=== PATIENT | male | born 1955 | race Caucasian/White ===

== ENCOUNTER 2016-05-17 14:22 | Emergency (ER) | payer MEDICARE ==
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
[2016-05-17] MEDS ORDERED: fentaNYL CITRATE INJ 50 MCG/ML AMP IV ONE ×2 (14:39→14:59)
[2016-05-17 14:54] VITALS: BP 131/73; TEMP 97.3
--- NOTE | 2016-05-17 14:54 | CT ---
EXAM DESCRIPTION: Noncontrast head CT CLINICAL HISTORY: 60 years, Male, altered mental status,severe LAINEZ COMPARISON: None TECHNIQUE: Head CT was performed without IV contrast. This exam was performed according to our departmental dose-optimization program, which includes automated exposure control, adjustment of the mA and/or kV according to patient size and/or use of iterative reconstruction technique. FINDINGS: Study is limited by motion artifact. With this in mind, no acute intracranial hemorrhage is seen. There is no midline shift or other mass effect. The ventricles and basilar cisterns are well maintained. Chronic ischemic changes are noted in the perirenal right matter, but no cortical edema or sulcal effacement is seen to suggest acute cortical infarct. The basal ganglia are unremarkable. There is no posterior fossa lesion. Is mild mucoperiosteal thickening in the left maxillary sinus. No calvarial fracture.. IMPRESSION: Limited exam due to motion artifact with mild chronic ischemic changes, but no acute intracranial abnormality. If symptoms persist or worsen, followup head CT in 24 hr or MRI is recommended. Electronically signed by: Manuel Laws MD 05/17/2016 2:53 PM CDT
[2016-05-17 15:49] VITALS: O2SAT 96
[2016-05-17] MEDS ORDERED: KETOROLAC TROMETHAMINE INJ 30 MG/ML VIAL IV ONE (16:04)
[2016-05-17] MEDS ORDERED: FOLIC ACID INJ 5 MG/ML VIAL IV ONE (16:07)
--- NOTE | 2016-05-17 19:16 | RAD ---
Procedure: XR CHEST 1 VIEW Exam Date: 05/17/2016 Ordering Provider: Jacek Schroeder Clinical Indication: pain Comparison: 07/10/2014 Findings: Cardiac size is magnified by technique. Pulmonary vasculature is normal. Mediastinal contour is normal. Aortic calcification. There is no focal lung consolidation. Left basilar scarring. No pleural effusion. There is no pneumothorax. There is no acute bony or soft tissue abnormality. Impression: 1. No acute abnormalities in the chest. Electronically signed by: Ramu Garcia MD 05/17/2016 7:15 PM CDT
== END 2016-05-17 16:20 | disposition home or self-care (01) ==
LOC: ER 14:22
DX: S00.81XA Abrasion of other part of head, initial encounter (principal); E87.1 Hypo-osmolality and hyponatremia; B19.20 Unspecified viral hepatitis C without hepatic coma; F10.20 Alcohol dependence, uncomplicated; I10 Essential (primary) hypertension; J44.9 Chronic obstructive pulmonary disease, unspecified; Y90.8 Blood alcohol level of 240 mg/100 ml or more; Z87.891 Personal history of nicotine dependence; Z86.73 Personal history of transient ischemic attack (TIA), and cerebral infarction without residual deficits; V00.811A Fall from moving wheelchair (powered), initial encounter; V09.29XA Pedestrian injured in traffic accident involving other motor vehicles, initial encounter; Y92.414 Local residential or business street as the place of occurrence of the external cause
CPT/HCPCS: 70450; 71010; 80048; 80076; 80320; 82550; 82553; 84484; 85025; 85610; 85730; J3010

== ENCOUNTER 2016-07-15 15:21 | Emergency (ER) | payer MEDICARE ==
--- NOTE | 2016-07-15 15:41 | ED.PDOC ---
History of Present Illness - General Chief Complaint: Chest Pain/ID Stated Complaint: chest pain/fall Time Seen by Provider: 07/15/16 15:40 Source: patient, RN notes reviewed, EMS notes reviewed Exam Limitations: no limitations - History of Present Illness Initial Comments: Abhijit Stack 61 y/o male with history of cva,copd ,hep c brought by ems after family called them up having chest pain and weakness left side of hi arm.Then family was in the room later and stated that he was walking on their house and fell then later on complaining of chest pains so ems got called by the family.He is talking with family stating no longer having chest pains but this time with headache with same complaint last time. Timing/Duration: 1-3 hours Severity: moderate Improving Factors: nothing Worsening Factors: nothing Associated Symptoms: headaches Allergies/Adverse Reactions: Allergies NO KNOWN ALLERGY Allergy (Verified 07/08/14 07:23) Home Medications: Ambulatory Orders NK [NK] 05/17/16 Review of Systems - Review of Systems Constitutional: States: no symptoms reported EENTM: States: no symptoms reported Respiratory: States: no symptoms reported Cardiology: States: see HPI Gastrointestinal/Abdominal: States: no symptoms reported Genitourinary: States: no symptoms reported Musculoskeletal: States: no symptoms reported Skin: States: no symptoms reported Neurological: States: pre-existing deficit - left hemiparesis Endocrine: States: no symptoms reported Hematologic/Lymphatic: States: no symptoms reported Past Medical History (General) - Patient Medical History Hx Seizures: No Hx Stroke: Yes - fet hemiparesis deficit Hx Dementia: No Hx Asthma: No Hx of COPD: Yes Hx Cardiac Disorders: No Hx Congestive Heart Failure: No Hx Pacemaker: No Hx Hypertension: Yes Hx Thyroid Disease: No Hx Diabetes: No Hx Gastroesophageal Reflux: No Hx Renal Disease: No Hx Cancer: No Hx of HIV: No Hx Hepatitis C: Yes - declined any treatment Hx MRSA: No Surgical History: no surgical history - Vaccination History Hx Tetanus, Diphtheria Vaccination: Yes Hx Influenza Vaccination: Yes Hx Pneumococcal Vaccination: Yes - Social History Hx Tobacco Use: Yes Hx Chewing Tobacco Use: No Hx Alcohol Use: Yes Hx Substance Use: No Hx Substance Use Treatment: No Hx Depression: No Hx Physical Abuse: No Hx Emotional Abuse: No Hx Suspected Abuse: No - Activities of Daily Living Patient Lives Alone: No - family Grooming Ability: Independent Eating (Feeding) Ability: Independent Toileting Ability: Standby Assistance Additional ED Patient Information: able to ambulate but needs his motorized wheelchair when he goes out - Female History Patient : No Family Medical History - Family History Mother Family History: Unknown Physical Exam - Physical Exam General Appearance: Alert, Comfortable, No apparent distress Eye Exam: bilateral other - blurry vision,chronic Ears, Nose, Throat: hearing grossly normal, normal ENT inspection, normal pharynx Neck: non-tender, full range of motion, supple Respiratory: chest non-tender, lungs clear, normal breath sounds, no respiratory distress Cardiovascular/Chest: normal peripheral pulses, regular rate, rhythm, no edema, no murmur Peripheral Pulses: radial,right: 2+, radial,left: 2+ Gastrointestinal/Abdominal: normal bowel sounds, non tender, soft, no organomegaly Back Exam: normal inspection, no CVA tenderness, no vertebral tenderness Extremity: normal range of motion, non-tender, normal inspection, no pedal edema , no calf tenderness Neurologic: oriented x 3, abnormal gait - limps left side, motor weakness - left side old cva Skin Exam: normal color, warm/dry Lymphatic: no adenopathy Progress - Progress Progress: 07/15/16 17:53 Vital Signs - 8 hr 07/15/16 07/15/16 07/15/16 15:21 15:48 16:18 Temperature 99.4 F Pulse Rate [ 129 H 108 H 110 H Apical] Respiratory 32 H 20 22 Rate Blood Pressure 141/99 116/64 109/76 [Left Arm] O2 Sat by Pulse 95 94 L 94 L Oximetry 07/15/16 15:41 URINE DRUG SCREEN, 7 ASSAY Stat URINALYSIS Stat 07/15/16 15:45 EKG STAT Laboratory Results WBC 12.1 K/mm3 (4.8-10.8) H 07/15/16 15:52 RBC 5.60 M/mm3 (4.70-6.10) 07/15/16 15:52 Hgb 18.3 gm/dL (14.0-18.0) H 07/15/16 15:52 Hct 54.5 % (42.0-52.0) H 07/15/16 15:52 MCV 97.2 fl (80.0-94.0) H 07/15/16 15:52 MCH 32.6 pg (27.0-31.0) H 07/15/16 15:52 MCHC 33.6 g/dL (33.0-37.0) 07/15/16 15:52 RDW 13.6 % (11.5-14.5) 07/15/16 15:52 Plt Count 273 K/mm3 (130-400) 07/15/16 15:52 MPV 7.2 fl (7.40-10.4) L 07/15/16 15:52 Absolute Neuts (auto) 7.30 K/uL (1.8-6.8) H 07/15/16 15:52 Absolute Lymphs (auto) 3.50 K/uL (1.0-3.4) H 07/15/16 15:52 Absolute Monos (auto) 1.00 K/uL (0.2-0.8) H 07/15/16 15:52 Absolute Eos (auto) 0.30 K/uL (0.0-0.4) 07/15/16 15:52 Absolute Basos (auto) 0.20 K/uL (0.0-0.1) H 07/15/16 15:52 Neutrophils % 59.7 % (42.0-78.0) 07/15/16 15:52 Lymphocytes % 28.8 % (20.0-50.0) 07/15/16 15:52 Monocytes % 7.9 % (2.0-9.0) 07/15/16 15:52 Eosinophils % 2.3 % (1.0-5.0) 07/15/16 15:52 Basophils % 1.3 % (0.0-2.0) 07/15/16 15:52 PT 10.0 SECONDS (9.4-12.5) 07/15/16 15:52 INR 0.880 07/15/16 15:52 PTT (SP) 34.7 SECONDS (25.1-36.5) 07/15/16 15:52 D-Dimer, Quantitative 322 ng/mL (0-230) H* 07/15/16 15:52 Sodium 133 mmol/L (135-145) L 07/15/16 15:52 Potassium 4.0 mmol/L (3.6-5.0) 07/15/16 15:52 Chloride 95 mmol/L (101-111) L 07/15/16 15:52 Carbon Dioxide 24 mmol/L (21-31) 07/15/16 15:52 Anion Gap 18.0 (12-18) 07/15/16 15:52 BUN < 5 mg/dL (7-18) L 07/15/16 15:52 Creatinine 0.62 mg/dL (0.6-1.3) 07/15/16 15:52 BUN/Creatinine Ratio 8.1 (10-20) L 07/15/16 15:52 Random Glucose 133 mg/dL (70-105) H 07/15/16 15:52 Serum Osmolality 265.6 mOsm/L (275-295) L 07/15/16 15:52 Calcium 8.9 mg/dL (8.4-10.2) 07/15/16 15:52 Magnesium 1.8 mg/dL (1.8-2.5) 07/15/16 15:52 Total Bilirubin 0.7 mg/dL (0.2-1.0) 07/15/16 15:52 Direct Bilirubin 0.2 mg/dL (0-0.2) 07/15/16 15:52 Indirect Bilirubin 0.5 mg/dL (0.2-0.8) 07/15/16 15:52 AST 70 IU/L (10-42) H 07/15/16 15:52 ALT 38 IU/L (10-60) 07/15/16 15:52 Alkaline Phosphatase 116 IU/L (42-121) 07/15/16 15:52 Creatine Kinase 40 IU/L (38-174) 07/15/16 15:52 CK-MB (CK-2) 1.7 ng/mL (0.0-4.4) 07/15/16 15:52 CK-MB (CK-2) % Not Reportable 07/15/16 15:52 Troponin I < 0.02 ng/mL (0.01-0.05) 07/15/16 15:52 B-Natriuretic Peptide 32.5 pg/ml (0-100) 07/15/16 15:52 Serum Total Protein 8.0 gm/dL (6.4-8.2) 07/15/16 15:52 Albumin 3.8 g/dl (3.2-5.5) 07/15/16 15:52 Ethyl Alcohol 277.60 mg/dL (0-79) H* 07/15/16 15:52 07/15/16 17:58 Patient wanting to go home discuss all test result and hi high alcohol level daughter stated that he drinks everyday starting in the morning and he was drinking beer before falling today according to daughter.Patient was told about harmful effects of alcohol stated that he had been drinking all his life. - EKG/XRAY/CT EKG: Sinus, Tachy, no ST T wave changes Comments: heart rate-130 XRAY: chest - no acute abnormalities/radiologist CT Ordered: Yes - head-no acute abnormalities old lacunar infarct /radiologist Departure - Departure Clinical Impression: Fall Qualifiers: Encounter type: initial encounter Qualified Code(s): W19.XXXA - Unspecified fall, initial encounter Alcohol dependence Qualifiers: Substance use status: with intoxication Complication of substance-induced condition: with unspecified complication Qualified Code(s): F10.229 - Alcohol dependence with intoxication, unspecified Headache Qualifiers: Headache type: unspecified Headache chronicity pattern: unspecified pattern Intractability: not intractable Qualified Code(s): R51 - Headache Chest pain Qualifiers: Chest pain type: unspecified Qualified Code(s): R07.9 - Chest pain, unspecified Time of Disposition: 18:05 Disposition: Discharge to Home or Self Care Departure Forms: ED Discharge - Pt. Copy, Patient Portal Self Enrollment Instructions: Alcoholism (Alternative Therapy), DI for Alcohol Abuse and Alcoholism Referrals: Namrata Arellano FNP [Primary Care Provider] - 1-2 Weeks Home Medications: Ambulatory Orders NK [NK] 05/17/16 Additional Instructions: RETURN TO EMERGENCY ROOM NEEDED;Keep appointment with primary md as scheduled
--- NOTE | 2016-07-15 15:43 | CT ---
EXAM DESCRIPTION: Head CLINICAL HISTORY: r/o stroke COMPARISON: May 17, 2016 TECHNIQUE: Noncontrast transaxial CT images of the head are obtained from base to vertex. This exam was performed according to our departmental dose-optimization program, which includes automated exposure control, adjustment of the mA and/or kV according to patient size and/or use of iterative reconstruction technique. FINDINGS: The midline structures are not displaced. Sulci are age-appropriate. There are areas of decreased attenuation in the periventricular white matter and the white matter of the centrum semiovale. There is no evidence of mass, mass-effect, hydrocephalus, or acute intracranial hemorrhage. No abnormal extra axial fluid collection is seen. Bone windows show no evidence of depressed skull fracture. Moderate to severe calcified plaque of the intracranial carotid arteries is again seen. The visualized paranasal sinuses are unremarkable. Poor dentition is noted. Total thickening in the ethmoid air cells is seen. IMPRESSION: 1. Age-appropriate atrophy with evidence of old small vessel ischemic type changes seen. 2. No acute abnormality is seen on noncontrast CT of the head. No interval change. Electronically signed by: Carlos Avila MD 07/15/2016 3:44 PM CDT
--- NOTE | 2016-07-15 15:45 | RAD ---
EXAM DESCRIPTION: Chest,1 View CLINICAL HISTORY: 61 years,Male,chest pain; cough COMPARISON: May 17, 2016 FINDINGS: Lung carias are clear, no consolidation, effusions, or nodules. Heart size and pulmonary vascularity are normal. Bony elements are unremarkable for age. IMPRESSION: Unremarkable chest. Stable Electronically signed by: Percy Nichols MD 07/15/2016 3:46 PM CDT
[2016-07-15] MEDS ORDERED: KETOROLAC TROMETHAMINE INJ 30 MG/ML VIAL IV ONE ×2 (17:12→17:13)
[2016-07-15 18:02] VITALS: O2SAT 96
[2016-07-15 18:23] VITALS: BP 109/74
[2016-07-15 18:30] VITALS: TEMP 98
== END 2016-07-15 18:13 | disposition home or self-care (01) ==
LOC: ER 15:21
DX: R07.9 Chest pain, unspecified (principal); R51 Headache; F10.129 Alcohol abuse with intoxication, unspecified; Y90.8 Blood alcohol level of 240 mg/100 ml or more; I69.959 Hemiplegia and hemiparesis following unspecified cerebrovascular disease affecting unspecified side; I10 Essential (primary) hypertension; K75.9 Inflammatory liver disease, unspecified; B19.20 Unspecified viral hepatitis C without hepatic coma; Z87.891 Personal history of nicotine dependence; W19.XXXA Unspecified fall, initial encounter; Y92.009 Unspecified place in unspecified non-institutional (private) residence as the place of occurrence of the external cause
CPT/HCPCS: 36415; 70450; 71010; 80048; 80076; 80320; 82550; 82553; 83880; 84484; 85025; 85379; 85610; 85730; 93005; J1885

== ENCOUNTER 2016-09-30 21:57 | Inpatient (IN) | payer MEDICARE ==
[2016-09-30] MEDS ORDERED: ASPIRIN TABLET 325 MG TAB ONE (22:15)
[2016-09-30] MEDS ORDERED: NITROGLYCERIN 0.4 MG 25 EA TAB SL ONE ×2 (22:15→22:16)
[2016-09-30] MEDS ORDERED: ASPIRIN (CHEWABLE) 81 MG TAB PO ONE (22:16)
[2016-09-30] MEDS ORDERED: PROMETHAZINE HCL INJ 12.5 MG in SODIUM CHLORIDE 0.9% 50ML 50 ML IVPB ONE (22:31)
[2016-09-30] MEDS ORDERED: HYDROmorphone HCL INJ 2 MG/ML VIAL IV ONE (22:31)
--- NOTE | 2016-09-30 22:34 | ED.PDOC ---
History of Present Illness - General Chief Complaint: GI Problem Stated Complaint: n/v several days Time Seen by Provider: 09/30/16 22:16 Information Source: patient, RN notes reviewed, Vital Signs reviewed, EMS Exam Limitations: no limitations - History of Present Illness Initial Comments: Patient comes in via EMS with initial complaints of nausea and vomiting for 2 days. Now c/o severe substernal chest pain. He is hollering and moaning and is a very poor historian. Pain has been present for 2 days. Per EMS even though c/o N/V he went to his friends today to drink Etoh. He has a history of Chirosis and Hep C. Abdominal Pain Onset Location: epigastric Pain Radiation: chest Quality: severe, sharpness, stabbing Timing/Duration: days - 2 Improving Factors: nothing Worsening Factors: nothing Associated Symptoms: chest pain, nausea/vomiting Review of Systems - Review of Systems Constitutional: States: no symptoms reported Respiratory: States: no symptoms reported Cardiology: States: see HPI, chest pain Gastrointestinal/Abdominal: States: see HPI, abdominal pain, nausea, vomiting Unable to Obtain Due To: other - Limited due to condition and lack of cooperation Past Medical History (General) - Patient Medical History Hx Seizures: No Hx Stroke: Yes - fet hemiparesis deficit Hx Dementia: No Hx Asthma: No Hx of COPD: Yes Hx Cardiac Disorders: No Hx Congestive Heart Failure: No Hx Pacemaker: No Hx Hypertension: Yes Hx Thyroid Disease: No Hx Diabetes: No Hx Gastroesophageal Reflux: No Hx Renal Disease: No Hx Cancer: No Hx of HIV: No Hx Hepatitis C: Yes - declined any treatment, liver cirrhosis Hx MRSA: No - Vaccination History Hx Tetanus, Diphtheria Vaccination: Yes Hx Influenza Vaccination: No Hx Pneumococcal Vaccination: Yes - Social History Hx Tobacco Use: Yes Hx Chewing Tobacco Use: No Hx Alcohol Use: Yes Hx Substance Use: No Hx Substance Use Treatment: No Hx Depression: No Hx Physical Abuse: No Hx Emotional Abuse: No Hx Suspected Abuse: No - Female History Patient : No Family Medical History - Family History Mother Family History: Unknown Physical Exam - Physical Exam General Appearance: Agitated, Obvious distress, Unkempt Eyes, Ears, Nose, Throat Exam: other - Dry mucous membranes Neck: non-tender, full range of motion, supple, normal inspection Respiratory: lungs clear, normal breath sounds, no respiratory distress, no accessory muscle use Cardiovascular/Chest: regular rate, rhythm, no gallop, no murmur Gastrointestinal/Abdominal: normal bowel sounds, guarding, tenderness - Diffusely with guarding, no rebound Neurologic: alert, normal mood/affect, oriented x 3 Skin Exam: normal color, warm/dry Comments: Vital Signs 09/30/16 22:16 Temperature 98.4 F Pulse Rate [ 95 H left] Respiratory 16 Rate Blood Pressure 110/73 [left] O2 Sat by Pulse 83 L Oximetry Progress - Progress Progress: 09/30/16 22:36 Patient given Aspirin and SLNTG w/o change. Will given Dilaudid and Phenergan 10/01/16 00:[address] Nevarez - will admit patient for dehydration, Hyponatremia, Hypokalemia, Nausea & Vomiting. - EKG/XRAY/CT EKG: Sinus, nonspecific ST T wave Chg Comments: Lots of artifact - Additional EKG/XRAY/Consults EKG #2: Sinus, no ST T wave changes Comments: Rate 98 Departure - Departure Clinical Impression: Nausea and vomiting in adult, Dehydration, moderate, Hyponatremia, Atypical chest pain, Pulmonary nodules/lesions, multiple Time of Disposition: 00:21 Disposition: Admit Patient Condition: Poor Departure Forms: ED Discharge - Pt. Copy, Patient Portal Self Enrollment Referrals: Namrata Arellano DIRECTOR OF MATERNITY SERVICES [Primary Care Provider] - 1-2 Weeks Home Medications: Ambulatory Orders NK [NK] 05/17/16 Decision To Admit - Decistion To Admit Decision to Admit Reason: Admit from ER Decision to Admit Date: 10/01/16 Decision to Admit Time: 00:19
[2016-09-30] MEDS ORDERED: PROMETHAZINE HCL INJ 25 MG/ML VIAL ONE (22:35)
[2016-09-30] MEDS ORDERED: SODIUM CHLORIDE 0.9% 50ML 50 ML ONE (22:36)
[2016-09-30] MEDS ORDERED: PANTOPRAZOLE SODIUM IV 40 MG VIAL IV ONE (23:00)
[2016-09-30] MEDS ORDERED: SODIUM CHLORIDE 0.9% 10 ML VIAL ONE (23:14)
[2016-09-30] MEDS ORDERED: ONDANSETRON INJ 4 MG/2 ML VIAL IV ONE (23:33)
--- NOTE | 2016-10-01 00:07 | CT ---
Procedure: CT CHEST ANGIOGRAPHY WITH IV CONTRAST Exam Date: 09/30/2016 Ordering Provider: Jessi Cook Clinical Indication: chest pain with elevated D-Dimer Comparison: None Technique: Using a multislice scanner, sequential axial imaging was obtained in the thorax from the level of the thoracic inlet through the lung bases after intravenous contrast administration. The contrast bolus was timed to evaluate the pulmonary arteries for thrombus. MIP coronal and sagittal reformatted images were obtained. This exam was performed according to our departmental dose optimization program which includes use of automated exposure control, adjustment of the mA and/or kV according to patient size and/or use of iterative reconstruction technique. Findings: There are no pulmonary emboli. Lungs and large airways: There are innumerable bilateral lung nodules, most of which are ill-defined. Largest of these is in the left lower lobe measuring 1.2 cm near the diaphragm. There is bronchial wall thickening and intraluminal debris in some of the smaller airways bilaterally. No lobar consolidation. Mediastinum and marilee: No lymphadenopathy Pleura: No pleural effusion. No pneumothorax. Heart and great vessels: Heart is not enlarged. No pericardial effusion. No aortic aneurysm. Aortic calcification. Coronary artery calcifications. Chest wall, lower neck, axillae: No axillary lymphadenopathy Upper abdomen: Mural thickening of the esophagus. No acute abnormalities in the visualized upper abdomen. Bones: Nonacute IMPRESSION: 1. No pulmonary embolism. 2. Innumerable bilateral lung nodules are suspicious for neoplastic process. There is bronchial wall thickening and intraluminal debris in some of the smaller airways bilaterally. Pulmonary consultation is recommended. 3. Mural thickening of the esophagus. Further evaluation with endoscopy is recommended. Electronically signed by: Ramu Garcia MD 10/01/2016 12:06 AM CDT
[2016-10-01] MEDS ORDERED: SODIUM CHLORIDE 0.9% (FLUSH) 10 ML SYG IV PRN (00:34)
[2016-10-01] MEDS ORDERED: MAGNESIUM HYDROXIDE 30 ML UD PO PRN (00:34)
[2016-10-01] MEDS ORDERED: LEVALBUTEROL NEBS 1.25 MG/3 ML VIAL NEB PRN (00:34)
[2016-10-01] MEDS ORDERED: PROMETHAZINE HCL INJ 12.5 MG in SODIUM CHLORIDE 0.9% 50ML 50 ML IVPB PRN (00:46)
--- NOTE | 2016-10-01 00:51 | PCM.CORE ---
Physician DVT/VTE - 5 or more Very High Risk Treatments: Early Ambulation *, Sequential Compression Device Pharmacological: Enoxaparin 40mg SQ Daily
[2016-10-01] MEDS ORDERED: ENOXAPARIN SODIUM 40 MG/0.4 ML SYG SUBCU SCH (01:00)
--- NOTE | 2016-10-01 01:09 | HP ---
HISTORY OF PRESENT ILLNESS: This 61 year-old white male is admitted to the hospital via the Emergency Room with significant right-sided chest discomfort, cough, difficulty swallowing, low -grade fever and confusion after a fall. He has been nauseated with repeat emesis for the last two days. Earlier on the day prior to admission he was noted to have fallen twice by family members even though he does not recall his falling. In the Emergency Room, he had an elevated white count of over 16,000. He admits to drinking a minimum of two quarts of [place] [employer] beer daily. He has not had any withdrawal symptoms because he does not usually stop drinking. He has had some discomfort in his epigastrium and slightly elevated liver enzymes which may point towards an alcoholic hepatitis or gastritis presentation. Also , he had a low sodium and potassium in the Emergency Room which will require further attention. His oxygen saturation was also low and had abnormal findings on his CT scan of the chest. This is concerning for the possibility of multiple nodules suggesting a neoplastic process with also some abnormality noted of the esophagus possibly contributing to his difficulty swallowing. PAST MEDICAL HISTORY: 1. Hepatitis C as well as some alcoholic liver disease. 2. Chronic obstructive pulmonary disease from smoking. 3. He is being followed in the [facility]. PAST SURGICAL HISTORY: None listed or known of. CURRENT MEDICATIONS: None listed. ALLERGIES: NONE KNOWN. FAMILY HISTORY: Positive for hepatitis C, otherwise he is adopted. 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 He has smoked for over 35 years, at least 2 packs per day equaling approximately 70-pack years and is still smoking approximately a half pack or more per day and encouraged to stop. REVIEW OF SYSTEMS: GENERAL: He has had some mild weight loss. He has had chills and felt warm suggesting an early fever at home before coming. HEENT: No hearing or vision disturbances otherwise noted. LUNGS: Shortness of breath is evident and frequent coughing with some yellowish sputum. No hemoptysis but he did have some at least 2 years ago when he had pneumonia. CARDIOVASCULAR: He is having pain in his right lateral chest which is tender to touch and may be related to the falls but further evaluation with cardiac enzymes to continues. GI: He has been protracted with nausea and vomiting. He has difficulty swallowing, he frequently has to chew up pills in order to get them down, possibly suggesting an esophageal stricture. No noticeable blood in the stools , no dysuria. EXTREMITIES: Muscles somewhat sore, no significant edema. NEUROLOGICAL: No significant headache but he does not remember falling. PHYSICAL EXAMINATION: VITAL SIGNS: Temperature was up to 100 degrees earlier this morning. He is afebrile now. Pulse was 102, blood pressure 120/77, respiratory effort was increased to 24 with pulse oximetry being 87% on room air and down to 83% on room air when he first arrived. GENERAL: The patient is in distress with pain stating that any type of pills that he swallows makes him sick. He is not that hungry and was offered a low- fat diet after the gallbladder ultrasound. HEENT: Unremarkable. NECK: Supple. CHEST: Diminished breath sounds with a few rhonchi, especially in the left base and clearing with further deep inspirations. CARDIOVASCULAR: Heart tones are somewhat rapid and fairly regular. There is chest wall tenderness upon palpation, especially on the right side and there may even be some bruising of the posterolateral chest area from a fall recently. Skin tears also noted just below the deltoid in the right arm probably secondary to the falls noted yesterday. He admits to no injury o the head. ABDOMEN: Somewhat tender, especially in the right upper quadrant and epigastric region. The liver seems to be enlarged, it is palpable beneath the right costal margin. Bowel tones are present. EXTREMITIES: Fairly well formed. Fair muscle tone. Fairly good range of motion. NEUROLOGIC: The patient does not recall his falls from yesterday. He is somewhat of a poor historian and the daughter is present to assist with history taking at the end of the history. No significant headache at this time, fairly good range of motion of the neck. LABORATORY: White count is 21,400 with 91% neutrophils. hemoglobin 16.2 with a macrocytic hyperchromic red blood cell indices. D-dimer was 714. Chemistries show sodium as 128 with treatment up to 132, potassium 3.3 and with supplementation up to 3.7. Chloride was low at 85, C02 of 31, BUN 6, creatinine normal at 0.77. Glucose 104 fasting. Osmolality 255 up to 262, calcium 9.1, bilirubin 1.6. AST elevated at 54, troponin 0, albumin 4, triglycerides 35, cholesterol 155, amylase 45, lipase 22, TSH 0.65. Urinalysis shows a trace of blood and blood cultures are pending as well as sputum is pending as well. On admission in the Emergency Room with an elevated D-dimer, a CT chest angiography was performed with contrast and showed no pulmonary emboli. There were numerous bilateral lung nodules, many ill-defined with the largest 1.2 cm in the left lower lobe. There is some bronchial wall thickening and intraluminal debris in some of the smaller airways but no lobar consolidation. Widespread atherosclerosis evident. Thickening across the wall of the esophagus was an abnormality suggesting further followup with endoscopy. ASSESSMENT: 1. Acute febrile illness with associated leukocytosis possibly suggesting an underlying pneumonia and awaiting further followup radiographically with treatment initiated with Ceftriaxone and Zithromycin and cultures pending. 2. Protracted nausea and vomiting possibly related to an underlying alcoholic gastritis or hepatitis. 3. Difficulty swallowing with dysphagia possibly primary esophageal stricture or disease process suggests GI evaluation with endoscopy. 4. Chronic ethanol intake and abuse with associated malnutrition evident with macrocytic hyperchromic anemia. 5. Recent fall, possibly with rib contusions or cartilage fractures not noted on CT scan to be present, yet followup suggested. 6. Mild dehydration. 7. Moderate alcoholic gastritis. 8. Hyponatremia showing some improvement with supplementation. 9. Hypokalemia showing improvement with supplementation. 10. Hypoxia, probably related to underlying chronic obstructive pulmonary disease and/or an early infectious condition. 11. Chronic obstructive pulmonary disease with an acute exacerbation. 12. Abnormal CT scan of the lungs suggesting multiple pulmonary nodules with the possibility of neoplasia needing to be evaluated and ruled out. 13. Leukocytoses, progressive in nature with followup and treatment necessary. 14. Abnormal CT findings of esophagitis with transmural wall thickening and with symptoms of dysphagia may require GI evaluation with endoscopy. 15. History of a CVA in the past. 16. History of seizure disorder possibly related to the CVA. 17. History of cirrhosis, probable alcoholic with fatty infiltration of the liver. 18. History of hepatitis C in 1974 possibly acquired through contact with a family member, cousin. PLAN: The patient is admitted to the hospital for IV therapy for possibly underlying infectious condition after blood cultures are obtained. Special attention with fluid restrictions and saline given for the hyponatremia and potassium supplement for the hypokalemia. Observe closely for the nausea and vomiting, await CT scan of the abdomen and repeat chest x-ray tomorrow. Further evaluation with CT of the head if not improving. Will require pulmonary medication to more fully evaluate the pulmonary nodule situation and may benefit from bronchoscopy. Consider GI evaluation with upper endoscopy for esophageal evaluation. Continue close observation and management. #[id number] [facility]
[2016-10-01] MEDS: IPRATROPIUM/ALBUTEROL 3 ML VIAL INH SCH ×2 (01:20→07:33)
[2016-10-01] MEDS ORDERED: FUROSEMIDE INJ 20 MG/2 ML VIAL IV ONE (01:30)
[2016-10-01] MEDS: HYDROcodone 5MG/APAP 325MG 1 EA TAB PO PRN ×4 (01:49→15:15)
[2016-10-01] MEDS: ONDANSETRON INJ 4 MG/2 ML VIAL IV PRN ×2 (01:49→11:20)
[2016-10-01] MEDS: KCL 20 MEQ/NS 1,000 ML IVS PRN ×2 (01:50→15:31)
[2016-10-01] MEDS: IV SET AND CAP CHANGE INJ INJ SCH (01:52)
[2016-10-01] MEDS: SUCRALFATE 1 GM/10 ML 1 GM UD PO SCH ×4 (06:47→20:31)
[2016-10-01] MEDS: IPRATROPIUM/ALBUTEROL 3 ML VIAL NEB SCH ×4 (08:42→20:21)
--- NOTE | 2016-10-01 09:55 | US ---
EXAM DESCRIPTION: Gall Bladder CLINICAL HISTORY: 61 years, Male, vomiting COMPARISON: Chest CTA dated 09/30/2016 FINDINGS: Transabdominal sonographic grayscale imaging to the RIGHT upper quadrant was performed. There is no intrahepatic or extrahepatic biliary ductal dilatation. 4 mm common bile duct. Sludge layers in a distended gallbladder. No gallstone. No gallbladder wall thickening or pericholecystic fluid. Negative reported sonographic Faria sign. The liver is normal in size measuring 17.1 cm. The pancreas is poorly seen. IMPRESSION: Gallbladder sludge. No evidence of acute cholecystitis. No evidence of biliary obstruction. Electronically signed by: Shannan Dawkins MD 10/01/2016 9:54 AM CDT
[2016-10-01] MEDS ORDERED: chlordiazePOXIDE HCL 5 MG CAP PO PRN (09:57)
[2016-10-01] MEDS ORDERED: SODIUM CHL 0.9% 50ML MIN-BAG+ 50 ML IVPB ONE ×2 (10:08→19:40)
[2016-10-01] MEDS ORDERED: cefTRIAXone SODIUM 1 GM VIAL ONE ×2 (10:09→19:40)
[2016-10-01] MEDS: PRENATAL MULTIVIT-MIN W/FE-FA 1 EA TAB PO SCH ×2 (10:14→11:00)
[2016-10-01] MEDS: AZITHROMYCIN 250 MG TAB PO SCH ×2 (10:14→10:59)
[2016-10-01] MEDS: cefTRIAXone SODIUM 1 GM in SODIUM CHL 0.9% 50ML MIN-BAG+ 50 ML IVPB SCH ×2 (10:15→20:32)
[2016-10-01] MEDS: PANTOPRAZOLE SODIUM TAB 40 MG PO SCH ×2 (10:15→10:58)
[2016-10-01] MEDS ORDERED: SODIUM CHLORIDE 0.9% 100ML 100 ML IVPB ONE (11:13)
[2016-10-01] MEDS ORDERED: THIAMINE HCL INJ 100 MG/ML VIAL ONE (11:13)
[2016-10-01] MEDS: HYDROcodone 10MG/APAP 325MG 1 EA TAB PO PRN ×3 (11:49→23:56)
[2016-10-01] MEDS: THIAMINE HCL INJ 100 MG in SODIUM CHLORIDE 0.9% 100ML 100 ML IVPB SCH (11:49)
--- NOTE | 2016-10-01 12:28 | CT ---
EXAM DESCRIPTION: Abdomen/Pelvis w/Contrast CLINICAL HISTORY: 61 years Male, vomiting, weight loss,dysphagia COMPARISON: RIGHT upper quadrant ultrasound from today TECHNIQUE: 5 mm axial images through the abdomen and pelvis were performed after the administration of intravenous contrast. Coronal and sagittal reconstructions were obtained. This exam was performed according to our departmental dose-optimization program which includes use of Automated Exposure Control, adjustment of the mA and/or kV according to patient size and/or use of iterative reconstruction technique. FINDINGS: Hazy alveolar opacities involve both lower lobes, LEFT greater than RIGHT. No pericardial or pleural effusion. Vascular calcifications are present. Postcontrast images of the fatty infiltrated liver, spleen, kidneys, adrenal glands and atrophic pancreas are unremarkable. Sludge occupies the gallbladder. No pericholecystic fat stranding or biliary ductal dilatation. Normal appendix. No ascites or small bowel obstruction. No suspicious bowel wall thickening or pericolonic fat stranding. Central calcification involves the prostate gland. No free fluid in the pelvis. Bony degenerative changes are diffuse with prominent involvement of the spine and hips. IMPRESSION: LEFT greater than RIGHT lower lobe aspiration versus pneumonia with airway spread of disease. Gallbladder sludge. No CT evidence of acute cholecystitis. Fatty infiltration of the liver. Aortic and branch vessel atherosclerosis. Electronically signed by: Shannan Dawkins MD 10/01/2016 12:27 PM CDT
[2016-10-01] MEDS: NICOTINE PATCH 14 MG TD SCH (12:44)
[2016-10-01] MEDS ORDERED: ENOXAPARIN SODIUM 40 MG/0.4 ML SYG SUBCU ONE (19:40)
[2016-10-01] MEDS: ENOXAPARIN SODIUM 40 MG/0.4 ML SYG SUBCU SCH (20:32)
[2016-10-02] MEDS: KCL 20 MEQ/NS 1,000 ML IVS PRN ×3 (00:47→19:48)
[2016-10-02] MEDS: HYDROcodone 10MG/APAP 325MG 1 EA TAB PO PRN (05:25)
--- NOTE | 2016-10-02 06:28 | RAD ---
Clinical History : fever , MAIN Exam : PA and lateral views of the chest 10/02/2016 7:00 AM CDT Comparisons : CT pulmonary angiogram September 30, 2016 Findings : There is stable patchy bibasilar airspace disease. The rest the lungs remain largely clear without pleural effusion. The heart is stable in size. The mediastinal contours are normal in appearance. There are vascular calcifications along the aortic arch. The thoracic spine is age appropriate. The shoulders are unremarkable. Limited evaluation of the upper abdomen demonstrates no gross abnormalities. Impression: Stable patchy bibasilar airspace disease consistent with multifocal infectious process. Electronically signed by: Renetta Celis MD 10/02/2016 6:27 AM CDT
[2016-10-02] MEDS: PANTOPRAZOLE SODIUM TAB 40 MG PO SCH (06:34)
[2016-10-02] MEDS: SUCRALFATE 1 GM/10 ML 1 GM UD PO SCH ×4 (06:34→20:40)
[2016-10-02] MEDS ORDERED: THIAMINE HCL INJ 100 MG/ML VIAL ONE (08:09)
[2016-10-02] MEDS ORDERED: SODIUM CHL 0.9% 50ML MIN-BAG+ 50 ML IVPB ONE ×2 (08:09→19:57)
[2016-10-02] MEDS ORDERED: cefTRIAXone SODIUM 1 GM VIAL ONE ×2 (08:10→19:58)
[2016-10-02] MEDS ORDERED: SODIUM CHLORIDE 0.9% 100ML 100 ML IVPB ONE (08:10)
[2016-10-02] MEDS: IPRATROPIUM/ALBUTEROL 3 ML VIAL NEB SCH ×4 (08:15→20:01)
[2016-10-02] MEDS: PRENATAL MULTIVIT-MIN W/FE-FA 1 EA TAB PO SCH (08:47)
[2016-10-02] MEDS: AZITHROMYCIN 250 MG TAB PO SCH (08:47)
[2016-10-02] MEDS: POTASSIUM CHLORIDE 10 MEQ TAB PO SCH (08:47)
[2016-10-02] MEDS: THIAMINE HCL INJ 100 MG in SODIUM CHLORIDE 0.9% 100ML 100 ML IVPB SCH (08:48)
[2016-10-02] MEDS: cefTRIAXone SODIUM 1 GM in SODIUM CHL 0.9% 50ML MIN-BAG+ 50 ML IVPB SCH ×2 (08:48→20:39)
[2016-10-02] MEDS: HYDROcodone 5MG/APAP 325MG 1 EA TAB PO PRN ×2 (10:32→18:47)
[2016-10-02] MEDS: NICOTINE PATCH 14 MG TD SCH (13:40)
--- NOTE | 2016-10-02 16:28 | PN ---
DATE: 10/02/16 SUBJECTIVE: The patient states he started feeling improved late yesterday afternoon after initiating therapy for an underlying pneumonia. His appetite has improved. He appears to be in much less distress with no further nausea and vomiting today. He admits to still smoking and is encouraged to stop completely. He admits having significant upper leg and thigh discomfort which stops him after walking about 25 yards suggesting a claudication type pain. Chronic hoarseness noted. OBJECTIVE: VITAL SIGNS: Afebrile. Pulse 95. Blood pressure 146/75, pulse oximetry 94% on room air showing some slight improvement. HEENT: Voice appears to be somewhat hoarse but he states that this is chronic. LUNGS have a few rhonchi, especially more prominent on the right base versus the left base. Minimal coughing today. CARDIOVASCULAR: Pulse is a little slower. No chest pains today compared to yesterday which he had on the left side. Still with some tenderness over the left anterior lateral lower ribs in the costochondral regions laterally. ABDOMEN: Softer with good bowel tones. One bowel movement yesterday evident. LABORATORY: White count is down from 21,000 to 17,000 with 84% neutrophils. Hemoglobin of 14.9. Chemistry shows potassium is down to 3.3, chloride is up to 96, C02 stable at 32, BUN 7, creatinine 0.7, glucose 81. Calcium 8.3. Bilirubin down to 1.3 and otherwise liver enzymes are more normalized. Albumin 3.2. Blood cultures and sputum culture showed no growth. Chest x-ray this morning does show bibasilar pneumonia which fits his current clinical picture with treatment initiated yesterday and close observation to continue. His abdomen pelvic CT scan showed increased levels of calcification in the aorta which may be contributing to a symptomatic claudication syndrome in the lower extremities. ASSESSMENT: 1. Acute febrile illness with leukocytoses and radiographic evidence of bibasilar pneumonia. Cultures pending, started on Rocephin and Zithromycin. 2. Protracted nausea and vomiting probably secondary to the underlying pneumonia process, showing improvement. 3. Some dysphagia, possibly primary esophageal stricture versus esophageal disease with suggestion for followup GI evaluation with upper endoscopy. 4. Chronic ethanol intake and abuse with associated malnutrition evident with macrocytic hyperchromic anemia probably folate deficiency, started on supplementation. 5. Recent fall with possible rib contusions or cartilage fracture not noted on CT scan.. 6. Mild dehydration showing improvement. 7. Moderate alcoholic gastritis. 8. Hyponatremia showing improvement with supplementation. 9. Hypokalemia persistent yet on supplementation. 10. Hypoxia, probably related to combined chronic obstructive pulmonary disease in a chronic smoker with bibasilar pneumonia present.. 11. Chronic obstructive pulmonary disease with an acute exacerbation. 12. Abnormal CT scan of the lungs suggesting multiple pulmonary nodules with the possibility of neoplasia needing further pulmonary medicine evaluation. 13. Leukocytoses showing some improvement after treatment initiated. 14. Abnormal CT findings of esophagitis with transmural wall thickening and symptoms of dysphagia may benefit from further GI evaluation. 15. History of a CVA in the past. 16. History of seizure disorder possibly related to the CVA. 17. History of cirrhosis, probably alcoholic with fatty infiltration of the liver. 18. History of hepatitis C since 1974 possibly acquired through contact with a family member, a cousin who also has hepatitis C. 19. History of hoarseness. 20. History of lower extremity discomfort aggravated by ambulation, possible claudication in nature with further vascular studies suggested. PLAN: Suggest vascular Doppler arterial studies to evaluate for ischemic lower extremity disease after discharge. Suggest further followup with a GI service for esophageal transmural thickening and possible dysphagia with stricture formation. May benefit from an upper endoscopy. Further followup with pulmonary medicine because of the multiple nodules in his lungs. The patient is encouraged to stop the alcohol as well as the tobacco usage. Will increase activity level and obtain some ambulation studies to evaluate for need for oxygen. Continue current treatment program and reevaluate. #[id number] [facility]
[2016-10-02] MEDS: ENOXAPARIN SODIUM 40 MG/0.4 ML SYG SUBCU SCH (20:40)
[2016-10-03] MEDS: HYDROcodone 10MG/APAP 325MG 1 EA TAB PO PRN (02:00)
[2016-10-03] MEDS: KCL 20 MEQ/NS 1,000 ML IVS PRN (05:17)
[2016-10-03] MEDS: PANTOPRAZOLE SODIUM TAB 40 MG PO SCH (06:13)
[2016-10-03] MEDS: SUCRALFATE 1 GM/10 ML 1 GM UD PO SCH ×4 (06:13→20:35)
[2016-10-03] MEDS ORDERED: SODIUM CHL 0.9% 50ML MIN-BAG+ 50 ML IVPB ONE ×2 (08:02→19:18)
[2016-10-03] MEDS ORDERED: cefTRIAXone SODIUM 1 GM VIAL ONE ×2 (08:03→19:18)
[2016-10-03] MEDS: POTASSIUM CHLORIDE 10 MEQ TAB PO SCH (08:29)
[2016-10-03] MEDS: PRENATAL MULTIVIT-MIN W/FE-FA 1 EA TAB PO SCH (08:29)
[2016-10-03] MEDS: AZITHROMYCIN 250 MG TAB PO SCH (08:29)
[2016-10-03] MEDS: cefTRIAXone SODIUM 1 GM in SODIUM CHL 0.9% 50ML MIN-BAG+ 50 ML IVPB SCH ×2 (08:29→20:35)
[2016-10-03] MEDS: IPRATROPIUM/ALBUTEROL 3 ML VIAL NEB SCH ×4 (09:15→20:20)
[2016-10-03] MEDS ORDERED: CHLORHEXIDINE GLUCONATE 4 % 15 ML UD TOP PRN (10:35)
[2016-10-03] MEDS ORDERED: SUCRALFATE 1 GM TAB PO SCH (11:30)
[2016-10-03] MEDS: GENTAMICIN 0.1% TOPICAL CREAM 15 GM TUBE TOP SCH ×2 (11:38→20:36)
[2016-10-03] MEDS: HYDROcodone 5MG/APAP 325MG 1 EA TAB PO PRN ×2 (12:33→19:23)
[2016-10-03] MEDS: NICOTINE PATCH 14 MG TD SCH (14:09)
--- NOTE | 2016-10-03 17:02 | PN ---
DATE: 10/03/16 SUPERVISING PHYSICIAN: Jose Elias Hinton M.D. SUBJECTIVE: The patient has no longer had any nausea or vomiting. He notes that he is feeling a little better than yesterday and he remains afebrile. OBJECTIVE: VITAL SIGNS: T max 99.0, pulse 93, blood pressure 154/80, respirations 20, satting 95% on room air. I's and O's show a positive balance of 2675 with 3575 in, 900 out. He has had 1 bowel movement. Weight is 77.7 kg. HEENT: The patient's voice is hoarse. Again, the patient notes that it is chronic for him. CHEST: Lungs continue with some faint rhonchi heard more prominent to the lateral posterior right base. HEART: Regular rate and rhythm. Still remains tender over the left anterior lateral chest wall. ABDOMEN: Soft , non-tender with positive bowel sounds. EXTREMITIES: There is an area of skin abrasion noted to the right upper forearm. No obvious drainage or evidence of infection. NEUROLOGIC: He is alert and oriented times three. LABORATORY: White count today has normalized at 9,900 and differential now is without a left shift. Hemoglobin and hematocrit are stable at 14.3 and 42.8 with platelet count 89,000. Chemistries show normalized electrolytes with potassium 4.0, BUN 6, creatinine 0.72. He has had 3 occult bloods that were negative. MICROBIOLOGY: Two sets of blood cultures are negative at 48 hours. Sputum culture showed normal viktor at 48 hours. ASSESSMENT: 1. Febrile illness with leukocytosis and radiographic evidence of bibasilar pneumonia with final sputum cultures showing normal viktor with the patient showing good clinical improvement having been started on Rocephin and Azithromycin. 2. Protracted nausea and vomiting felt to be secondary to underlying pneumonia process, now improved. 3. Dysphagia secondary to esophageal strictures versus esophageal disease needing continued gastrointestinal followup with an upper endoscopy at discharge. 4. Chronic alcohol abuse with associated nutritional deficits with a noted microcytic hypochromic anemia probably secondary to folic acid deficiency having been started on supplementation. 5. Recent falls with a possible rib contusion and cartilage fracture not noted on CT scan with continued left sided chest wall discomfort. 6. Mild dehydration, improved after IV fluids. 7. Moderate alcoholic gastritis, improved. 8. Electrolyte imbalance to include hyponatremia and hypokalemia now resolved after supplementation and IV fluids. 9. Hypoxia related to underlying combination of chronic obstructive pulmonary disease with being a chronic smoker with ongoing bibasilar pneumonia. 10. Chronic obstructive pulmonary disease with an acute exacerbation. 11. Abnormal CT scan of the lungs suggesting multiple pulmonary nodules, cannot completely rule out the possibility of neoplasm needing continued followup with Pulmonary Medicine at time of discharge. 12. Leukocytosis now normalized after initiation of antibiotics felt to be secondary to underlying bibasilar pneumonia. 13. Abdominal CT scan findings of esophagitis with transluminal wall thickening and symptoms of dysphagia needing further gastrointestinal evaluation at discharge. 14. History of cerebrovascular accident in the past. 15. History of seizure disorder felt to be related to cerebrovascular accidents. 16. History of cirrhosis likely alcoholic with fatty infiltration of the liver. 17. History of hepatitis C since 1974 acquired possibly through contact with family member who is noted to have a cousin who has hepatitis C. 18. History of chronic hoarseness. 19. History of lower extremity discomfort aggravated by ambulation possibly secondary to claudication needing further vascular studies at time of discharge. PLAN: The patient is showing good clinical improvement today. He normalized his white count and will continue to benefit for at least an additional 24 hours of IV antibiotic therapy prior to discharge. At discharge, he certainly will need followup with multiple specialist services to include gastrointestinal services for the esophageal transluminal thickening, dysphagia and stricture formation as well as upper endoscopy. He will also benefit from Pulmonary Medicine to further followup and evaluate the pulmonary nodules noted on CT scan and further studies of lower extremity vascular Doppler arterial studies to further evaluate for ischemic vascular disease to the lower extremities. Again, the patient is encouraged to stop drinking alcohol. He reports he drinks 2 quarts of beer a day, 1 in the morning and 1 at night as well as cessation of tobacco usage. Will continue to increase activity level and utilize aggressive pulmonary hygiene, and oxygen as needed. Anticipate discharge tomorrow. Will reevaluate in the morning with a chest x-ray and repeat laboratory studies. Until then, will continue to monitor and treat appropriately. #[id number] [facility]
[2016-10-03] MEDS: SODIUM CHLORIDE 0.9% (FLUSH) 10 ML SYG IV SCH (20:34)
[2016-10-03] MEDS: ENOXAPARIN SODIUM 40 MG/0.4 ML SYG SUBCU SCH (20:35)
[2016-10-03] MEDS ORDERED: TEMAZEPAM 15 MG CAP PO PRN (22:11)
[2016-10-04] MEDS: IV SET AND CAP CHANGE INJ INJ SCH (01:00)
[2016-10-04] MEDS: SUCRALFATE 1 GM/10 ML 1 GM UD PO SCH (05:46)
[2016-10-04] MEDS: PANTOPRAZOLE SODIUM TAB 40 MG PO SCH (05:46)
--- NOTE | 2016-10-04 07:01 | RAD ---
Clinical History : pneumonia , MAIN Exam : PA and lateral views of the chest 10/04/2016 7:00 AM CDT Comparisons : PA and lateral views of the chest October 02, 2016 Findings : There is stable patchy bibasilar airspace disease. Emphysematous changes are again noted throughout the lungs bilaterally.. The heart is normal in size. The mediastinal contours are normal in appearance. There are vascular calcifications along the aortic arch. The thoracic spine is age appropriate. The shoulders are unremarkable. Limited evaluation of the upper abdomen demonstrates no gross abnormalities. Impression: Stable patchy bibasilar airspace disease. Electronically signed by: Renetta Celis MD 10/04/2016 7:00 AM CDT
[2016-10-04] MEDS ORDERED: SODIUM CHL 0.9% 50ML MIN-BAG+ 50 ML IVPB ONE (07:46)
[2016-10-04] MEDS ORDERED: cefTRIAXone SODIUM 1 GM VIAL ONE (07:47)
[2016-10-04] MEDS: IPRATROPIUM/ALBUTEROL 3 ML VIAL NEB SCH (08:15)
[2016-10-04] MEDS: POTASSIUM CHLORIDE 10 MEQ TAB PO SCH (08:21)
[2016-10-04] MEDS: AZITHROMYCIN 250 MG TAB PO SCH (08:21)
[2016-10-04] MEDS: GENTAMICIN 0.1% TOPICAL CREAM 15 GM TUBE TOP SCH (08:22)
[2016-10-04] MEDS: cefTRIAXone SODIUM 1 GM in SODIUM CHL 0.9% 50ML MIN-BAG+ 50 ML IVPB SCH (08:22)
[2016-10-04] MEDS: PRENATAL MULTIVIT-MIN W/FE-FA 1 EA TAB PO SCH (08:40)
[2016-10-04] MEDS: SODIUM CHLORIDE 0.9% (FLUSH) 10 ML SYG IV SCH (08:42)
[2016-10-04 09:20] VITALS: BP 159/85; TEMP 97.8; O2SAT 97
--- NOTE | 2016-10-05 11:07 | DS ---
SUPERVISING PHYSICIAN: Jose Elias Hinton MD DISCHARGE DIAGNOSIS: 1. Febrile illness with leukocytosis and radiographic evidence of bibasilar pneumonia with final sputum cultures showing normal viktor with the patient having been started on Rocephin and azithromycin and showing good clinical improvement prior to discharge. 2. Protracted nausea and vomiting initially on admission, felt to be secondary to underlying pneumonia process, improved after IV fluids. 3. Dysphagia, secondary to esophageal strictures versus esophageal disease needing continued gastrointestinal followup with an upper endoscopy after discharge. 4. Chronic alcohol abuse with associated nutritional deficits with a noted microcytic hypochromic anemia, secondary to folic acid deficiency having been started on supplementation and encouraged to not drink. 5. Recent falls with a possible rib contusion and cartilage fracture not noted on CT scan with continued left sided chest wall discomfort, although showing improvement prior to discharge. 6. Mild dehydration, improved after IV fluids. 7. Moderate alcoholic gastritis, improved after starting on fluids and antibiotics. 8. Electrolyte imbalance on admission to include hyponatremia and hypokalemia, resolved after supplementation and IV fluids. 9. Hypoxia related to underlying combination of chronic obstructive pulmonary disease with being a chronic smoker with ongoing bibasilar pneumonia. 10. Chronic obstructive pulmonary disease with an acute exacerbation secondary to underlying bibasilar community acquired pneumonia. 11. Abnormal CT scan of the lungs showing multiple pulmonary nodules and could not completely rule out the possibility of neoplasm, needing continued followup with pulmonary medicine and primary care provider at time of discharge. 12. Leukocytosis, secondary to underlying bibasilar pneumonia, having normalized after initiation of IV antibiotics prior to discharge. 13. Abdominal CT scan findings of esophagitis with transluminal wall thickening and symptoms of dysphagia, requiring further gastrointestinal evaluation after discharge. 14. History of cerebrovascular accident in the past. 15. History of seizure disorder felt to be related to cerebrovascular accidents. 16. 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 17. History of hepatitis C since 1974. 18. History of chronic hoarseness, needing close followup with primary care provider at discharge. 19. History of lower extremity discomfort aggravated by ambulation, possibly secondary to claudication, needing further vascular studies and close followup at discharge. HISTORY OF PRESENT ILLNESS: Mr. Stack is a 61-year-old, male patient initially admitted to the hospital via the Emergency Room with significant right -sided chest discomfort, cough, difficulty swallowing, low-grade fever and confusion after a fall. He has been nauseated with repeat emesis for the last two days prior to admission. On the day prior to admission, he was noted to have fallen twice by family members even though he does not recall his falling. In the Emergency Room, he had an elevated white count of over 16,000. He admitted to drinking a minimum of two quarts of [place] [employer] beer daily. He had not had any withdrawal symptoms because he does not usually stop drinking. He has had some discomfort in his epigastrium and slightly elevated liver enzymes with concern for alcoholic hepatitis versus gastritis on admission. Also, he had a low sodium and potassium in the Emergency Room. His oxygen saturation was also low and had abnormal findings on his CT scan of the chest. Given the multiple comorbidities and chest pain, abnormal findings on CT with concerns for community acquired pneumonia, the patient was admitted to the Medical/ Surgical Floor in stable condition. LABORATORY: Initially on admission, he had a leukocytosis of 16.4. It did maximize at 21.4, but had normalized by 24 hours prior to discharge after initiation of antibiotic therapy to include Rocephin and azithromycin. At discharge, white count was 10.0. Hemoglobin and hematocrit remained stable and at discharge were 14.6 and 43.6. He had a microcytic/hypochromic RBC presentation with platelet count of 117,000. At discharge, he drop his platelets to a low of 89 during his hospitalization, but returned to low normal limits prior to discharge . He did have a left shift that persisted through admission, but was showing improvement as well as him clinically showing improvement prior to discharge after initiation of antibiotic therapy. Coagulation studies showed elevated D-dimer at 714. This was followed up with CT of the chest. Chemistries on admission showed a moderate hyponatremia with a sodium of 128, potassium was 3.3, carbon dioxide elevated at 32, BUN 6, creatinine 0.74, calcium normal at 9.4, serum osmolality 255, bilirubin 1.6, AST 54. He had cardiac enzymes that remained within normal limits times two. BNP was within normal limits at 92. Lipid panel showed normal cholesterol, normal triglycerides with HDL of 106, LDL 23. TSH was normal at 0.65. Amylase and lipase were both within normal limits. Urinalysis showed just a trace of intact blood, otherwise within normal limits. He had three occult bloods on stool that were all negative. MICROBIOLOGY: Two sets of blood cultures were negative with no growth at 3 days. Sputum culture showed normal viktor at 48 hours. RADIOLOGY: Initially in the Emergency Department, given the findings of the D- dimer, he had a CT of the chest and per radiologic interpretation there was no pulmonary emboli identified . There was mention of multiple lung nodules. Please refer to that report for full details. Also mentioned was mural thickening of the esophagus, but no acute abnormalities visualized within the upper abdominal. There was mention of bronchial wall thickening and intraluminal debris, small airways bilaterally with recommendation for pulmonary consultation. He had multiplex chest x-rays. Initial chest x-ray after admission showed per radiologic interpretation stable patchy bibasilar airspace disease consistent with multifocal infectious process. This was followed up with chest x-ray on date of discharge and per radiologic interpretation, there was noted to be stable patchy bibasilar airspace disease. He also had a gallbladder ultrasound and as noted by radiology, there was gallbladder sludge, but no evidence of acute cholecystitis, no evidence of biliary obstruction. This was followed up with CT of the abdomen and pelvis with contrast and per radiologic interpretation, there was note of a left greater than right lower lobe aspiration versus pneumonia with airway spread of disease, gallbladder sludge, but no CT evidence of acute cholecystitis. There was note fatty infiltration of the liver. Please see that final report for full details. HOSPITAL COURSE: Mr. Stack was admitted on 10/01/16 from the Emergency Department as noted in history of present illness with concern for bilateral bibasilar pneumonia. He was started on antibiotics to include Rocephin and azithromycin as well as aggressive bronchial hygiene. He did show good clinical improvement. He was given IV fluids to correct his electrolyte imbalance. He was monitored closely clinically. He remained hemodynamically stable. Vital signs on discharge showed him to be afebrile with temperature 97.8, pulse 83, blood pressure 159/85. Saturation 97% on room air with respirations 20. PHYSICAL EXAMINATION ON DISCHARGE: HEENT: The patient continued to have a hoarse voice, which is noted to be chronic. CHEST: Lungs much improved with aeration with no notable rales, rhonchi or wheezing on discharge, just diminished towards the bases, more on the right than the left. HEART: Regular rate and rhythm. He still had some chest wall tenderness overlying the left anterolateral chest wall. ABDOMEN: Soft, nontender. Positive bowel sounds. EXTREMITIES: No cyanosis, clubbing or edema. He did have a skin abrasion noted on his right upper forearm that was showing improvement with wound care. NEUROLOGIC: Alert and oriented times three. He had no signs of withdrawals, no seizure activity, no tremors note, no hallucinations, visual or auditory. Based on the patient's clinical improvement and findings on date of discharge, it was felt the patient had clinically improved well enough to continue with outpatient treatment plan with p.o. antibiotics and close clinical followup again for the findings of the nodules on the CT lung, the esophagitis, transluminal thickening, hoarse voice, with gastrointestinal specialist along with dysphagia with need for upper endoscopy and close pulmonary followup again with the CT findings. PLAN: The patient is discharged to have close clinical followup at [facility] with Dr. Stephenson or Asya Kaminski. He will need additional specialty followups with gastrointestinal specialist as noted for followup for dysphagia, esophagitis and transluminal wall thickening. He will also need pulmonary specialty medicine followup in regards to the CT findings of the nodules in lungs as noted on CT report. I did start him on Chantix in efforts to help with smoking cessation and he will need to followup for that for refills and close monitoring. He was encouraged to stop drinking. He will also need vascular studies done and followup with cardiovascular specialty in regard to the concern for claudication with the lower extremity discomfort with ambulation. Would recommend Doppler studies, arterial, and upper endoscopy as noted once able to secure followup. He was instructed to resume his home medications as prior to admission and to start medications prescribed at discharge as directed. DISCHARGE MEDICATIONS: 1. Azithromycin 500 mg q.24h. for continuation of treatment, completion 2 days. 2. Cefdinir 300 mg twice daily for 10 days. 3. Chlorhexidine Hibiclens wash to right upper arm area daily. 4. Protonix 40 mg daily, #30. 5. Potassium chloride 20 mEq at breakfast, #30. 6. Carafate tables 1 gram 4 times a day with meals, #40. 7. Chantix starter pack, take as directed. Diet at discharge was to be low-cholesterol, low-fat diet as tolerated. Activity to increase as tolerated. Condition at discharge was stable and improved. #[id number] [facility]
== END 2016-10-04 09:30 | disposition home or self-care (01) | DRG 190 ==
LOC: ER 21:57 → OBSVTOIN 10-01 01:08 → MS 10-01 01:08
PROVIDERS: ADMIT Emergency Medicine; ATTEND Nurse Practitioner Family
PROC: B32TYZZ Computerized Tomography (CT Scan) of Left Pulmonary Artery using Other Contrast (ICD-10-PCS; principal; 2016-09-30)
PROC: B32SYZZ Computerized Tomography (CT Scan) of Right Pulmonary Artery using Other Contrast (ICD-10-PCS; 2016-09-30)
PROC: BW21YZZ Computerized Tomography (CT Scan) of Abdomen and Pelvis using Other Contrast (ICD-10-PCS; 2016-10-01)
DX: J44.0 Chronic obstructive pulmonary disease with (acute) lower respiratory infection (principal); J18.9 Pneumonia, unspecified organism; E87.1 Hypo-osmolality and hyponatremia; J44.1 Chronic obstructive pulmonary disease with (acute) exacerbation; R13.10 Dysphagia, unspecified; F10.10 Alcohol abuse, uncomplicated; D52.8 Other folate deficiency anemias; D50.9 Iron deficiency anemia, unspecified; E86.0 Dehydration; K29.20 Alcoholic gastritis without bleeding; E87.6 Hypokalemia; R09.02 Hypoxemia; R91.8 Other nonspecific abnormal finding of lung field; R93.3 Abnormal findings on diagnostic imaging of other parts of digestive tract; K70.30 Alcoholic cirrhosis of liver without ascites; K76.0 Fatty (change of) liver, not elsewhere classified; B19.20 Unspecified viral hepatitis C without hepatic coma; R49.0 Dysphonia; R29.6 Repeated falls; R79.1 Abnormal coagulation profile; F17.210 Nicotine dependence, cigarettes, uncomplicated; Z86.73 Personal history of transient ischemic attack (TIA), and cerebral infarction without residual deficits

== ENCOUNTER 2016-11-16 20:51 | Emergency (ER) | payer MEDICARE ==
[2016-11-16] MEDS ORDERED: ONDANSETRON INJ 4 MG/2 ML VIAL IV ONE (20:57)
[2016-11-16 21:01] VITALS: TEMP 98.6
--- NOTE | 2016-11-16 21:01 | ED.PDOC ---
History of Present Illness - General Chief Complaint: GI Problem Stated Complaint: N/V/D Time Seen by Provider: 11/16/16 20:57 Information Source: patient, RN notes reviewed, Vital Signs reviewed, EMS Exam Limitations: no limitations - History of Present Illness Initial Comments: Patient comes in with c/o nausea, vomiting and diarrhea since 07:30 this morning. Denies abdominal pain. No fever or chills. No blood in vomit or diarrhea. Daughter recently sick with the same symptoms. Abdominal Pain Onset Location: other - None Pain Radiation: no radiation Timing/Duration: 7-24 hours Improving Factors: nothing Worsening Factors: nothing Associated Symptoms: diarrhea, fatigue, nausea/vomiting Review of Systems - Review of Systems Constitutional: States: malaise. Denies: chills, fever EENTM: States: no symptoms reported Respiratory: States: no symptoms reported Cardiology: States: no symptoms reported Gastrointestinal/Abdominal: States: diarrhea, nausea, vomiting. Denies: abdominal pain Musculoskeletal: States: no symptoms reported Skin: States: no symptoms reported Neurological: States: no symptoms reported All other Systems: No Change from Baseline Past Medical History (General) - Patient Medical History Hx Seizures: Yes Hx Stroke: Yes Hx Dementia: No Hx Asthma: No Hx of COPD: Yes Hx Cardiac Disorders: No Hx Congestive Heart Failure: No Hx Pacemaker: No Hx Hypertension: Yes Hx Thyroid Disease: No Hx Diabetes: No Hx Gastroesophageal Reflux: No Hx Renal Disease: No Hx Cancer: No Hx of HIV: No Hx Hepatitis C: Yes - declined any treatment, liver cirrhosis Hx MRSA: No - Vaccination History Hx Tetanus, Diphtheria Vaccination: Yes Hx Influenza Vaccination: No Hx Pneumococcal Vaccination: Yes - Social History Hx Tobacco Use: Yes Hx Chewing Tobacco Use: No Hx Alcohol Use: Yes Hx Substance Use: No Hx Substance Use Treatment: No Hx Depression: No Hx Physical Abuse: No Hx Emotional Abuse: Yes Hx Suspected Abuse: No - Female History Patient : No Family Medical History - Family History Mother Family History: Unknown Physical Exam - Physical Exam General Appearance: Alert, No apparent distress, Ill Appearing, Well Developed, Well Groomed, Well Nourished Eyes, Ears, Nose, Throat Exam: other - mildly dry mucous membranes Neck: supple, normal inspection Respiratory: lungs clear, normal breath sounds, no respiratory distress, no accessory muscle use Cardiovascular/Chest: regular rate, rhythm, no gallop, no JVD, no murmur Gastrointestinal/Abdominal: normal bowel sounds, soft, no organomegaly, no pulsatile mass, guarding - voluntary, tenderness - Mild, diffuse tenderness w/o rebound Extremity: normal range of motion, normal inspection Neurologic: alert, normal mood/affect, oriented x 3 Skin Exam: normal color, warm/dry Progress - Progress Progress: 11/16/16 21:35 Patient now c/o abdominal pain. Will get CT scan. 11/16/16 22:33 CT shows no acute findings. Will give a second L of NS and some Morphine 5mg IV for pain 11/16/16 23:13 Patient reports no change with pain medication. Will give another Morphine 5mg IV. 11/16/16 23:47 Patient is feeling better and is ready to go home. - Results/Orders Results/Orders: Laboratory Tests 11/16/16 11/16/16 21:12 21:12 WBC 19.2 H RBC 5.49 Hgb 18.4 H Hct 54.9 H MCV 100.1 H MCH 33.5 H MCHC 33.4 RDW 14.7 H Plt Count 146 MPV 7.9 Absolute Neuts (auto) 17.10 H Absolute Lymphs (auto) 1.00 Absolute Monos (auto) 0.90 H Absolute Eos (auto) 0.00 Absolute Basos (auto) 0.10 Neutrophils % Not Reportable Neutrophils % (Manual) 69.0 Lymphocytes % Not Reportable Lymphocytes % (Manual) 10.0 Monocytes % Not Reportable Monocytes % (Manual) 5.0 Eosinophils % Not Reportable Basophils % Not Reportable Band Neutrophils 16.0 Platelet Estimate Norm Macrocytosis 2+ Spherocytes 2+ Sodium 136 Potassium 3.9 Chloride 95 L Carbon Dioxide 26 Anion Gap 18.9 H BUN 6 L Creatinine 0.95 BUN/Creatinine Ratio 6.3 L Random Glucose 93 Serum Osmolality 269.3 L Calcium 8.9 Total Bilirubin 1.3 H AST 42 ALT 22 Alkaline Phosphatase 112 Serum Total Protein 7.4 Albumin 3.7 Globulin 3.7 H Albumin/Globulin Ratio 1.0 L - EKG/XRAY/CT CT Ordered: Yes - No acute intrabdominal abnormalities, Aortoiliac athersclerosis per Rad Departure - Departure Clinical Impression: Gastroenteritis Time of Disposition: 23:47 Disposition: Discharge to Home or Self Care Condition: Good Departure Forms: ED Discharge - Pt. Copy, Patient Portal Self Enrollment Instructions: DI for Viral Gastroenteritis -- Adult Diet: resume usual diet Activity: increase activity as tolerated Referrals: Namrata Arellano, ASSISTANT MANAGER [employer] [Primary Care Provider] - 1-2 Weeks Prescriptions: Ondansetron Odt [Zofran ODT] 8 mg PO Q6HR PRN #15 tab PRN Reason: Nausea/Vomiting Home Medications: Ambulatory Orders Albuterol Inhaler [Ventolin Hfa Inhaler] 1 puff INH Q4HR PRN #1 inh 10/04/16 Azithromycin Tab [Zithromax Tab] 500 mg PO Q24H #2 tablet 10/04/16 Cefdinir [Omnicef] 300 mg PO BID #20 cap 10/04/16 Chlorhexidine Gluc 4% 15Ml [Hibiclens 15ml Unit Dose] 60 ml TOP BID PRN Pantoprazole Tablet [Protonix] 40 mg PO DAILY #30 tablet 10/04/16 Potassium Chloride Tab [Micro-K] 20 meq PO DAILYBK #30 tablet 10/04/16 Sucralfate Tab [Carafate Tab] 1 gm PO QID #40 tab 10/04/16 Varenicline Tartrate [Chantix Starting M... 0.5 mg X 11 & 1 mg X 42] 1 alex PO DAILY #1 alex 10/04/16 Ondansetron Odt [Zofran ODT] 8 mg PO Q6HR PRN #15 tab 11/16/16
--- NOTE | 2016-11-16 22:22 | CT ---
EXAM DESCRIPTION: Abdomen/Pelvis w/Contrast CLINICAL HISTORY: 61 years Male, abd pain/N/V/D COMPARISON: 10/01/2016 TECHNIQUE: Contiguous axial CT images of the abdomen and pelvis were acquired after the administration of intravenous contrast. Coronal and sagittal reformatted images are provided. This exam was performed according to our departmental dose-optimization program which includes use of Automated Exposure Control, adjustment of the mA and/or kV according to patient size and/or use of iterative reconstruction technique. FINDINGS: Chest base: Coronary artery calcifications. Lung bases are clear. Liver: Diffuse hepatic steatosis. Gallbladder: Unremarkable. Spleen: Unremarkable. Adrenals: Unremarkable. Pancreas: Unremarkable. Right Kidney: No renal stones or hydronephrosis. Left Kidney: No renal stones or hydronephrosis. Aorta and branch vessels: Advanced calcific atherosclerosis of the aortoiliac vessels. Probable severe stenosis of the left common iliac artery, for example image 59 series 2. The mesenteric arteries are patent. Lymph nodes: No lymphadenopathy. Bowels: No obstruction. Colon: Scattered colonic diverticula. Appendix: Normal. Peritoneum: No free air or free fluid. Pelvic organs: Coarse prostatic calcifications. Bladder: Nondistended Bones and soft tissues: No acute osseous or soft tissue abnormalities. IMPRESSION: No acute intra-abdominal abnormality. Diffuse hepatic steatosis. Advanced aortoiliac atherosclerosis with involvement of the branch vessels. Probable severe stenosis of the left common iliac artery. Scattered colonic diverticula. Electronically signed by: Andrea Hooker MD 11/16/2016 10:21 PM CDT
[2016-11-16] MEDS ORDERED: MORPHINE SULFATE INJ 10 MG/ML VIAL IV ONE ×2 (22:31→23:13)
[2016-11-16] MEDS ORDERED: SODIUM CHLORIDE 0.9% 1000ML 1,000 ML IVS ONE (22:31)
[2016-11-16 23:43] VITALS: O2SAT 95
[2016-11-16] MEDS ORDERED: ONDANSETRON ODT (ER DISP) 8 MG TAB PO ONE (23:46)
[2016-11-17 00:01] VITALS: BP 158/66
== END 2016-11-17 00:01 | disposition home or self-care (01) ==
LOC: ER 20:51
DX: K52.9 Noninfective gastroenteritis and colitis, unspecified (principal); B19.20 Unspecified viral hepatitis C without hepatic coma; J44.9 Chronic obstructive pulmonary disease, unspecified; I10 Essential (primary) hypertension; Z86.73 Personal history of transient ischemic attack (TIA), and cerebral infarction without residual deficits; Z87.891 Personal history of nicotine dependence
CPT/HCPCS: 36415; 74177; 80053; 85025; J2270; J2405; J7030

== ENCOUNTER 2017-12-27 18:26 | Emergency (ER) | payer MEDICARE ==
--- NOTE | 2017-12-27 19:21 | RAD ---
PROCEDURE: XR Chest, 1 View CLINICAL INDICATION: The patient is 62 years old and is Male; AMS TECHNIQUE: Frontal view of the chest. COMPARISON: Prior study from 10/04/2016 FINDINGS: LUNGS: There are a cluster of thick walled cavitary 1 cm lesions in the RIGHT infrahilar region and at the RIGHT lung base medially above the hemidiaphragm. There are patchy changes in the LEFT lower lobe new from the prior study which could be atelectasis, scarring and/or pneumonia. Pulmonary vascularity is normal. PLEURAL SPACE: There is NO pneumothorax. There are no pleural effusions noted. HEART: The heart size is within normal limits MEDIASTINUM: The mediastinal contour is unremarkable. BONES/JOINTS: There are degenerative changes of the spine identified. No acute abnormality. VASCULATURE: The aortic knob is calcified. TUBES, LINES AND DEVICES: Tracheostomy is noted, new from the prior study, in place. IMPRESSION: There are a cluster of thick walled cavitary 1 cm lesions in the RIGHT infrahilar region and at the RIGHT lung base medially above the hemidiaphragm. There are patchy changes in the LEFT lower lobe new from the prior study which could be atelectasis, scarring and/or pneumonia Electronically signed by: Perfecto Meza MD 12/27/2017 7:19 PM [facility]
[2017-12-27] MEDS ORDERED: cefTRIAXone SODIUM 1 GM in SODIUM CHL 0.9% 50ML MIN-BAG+ 50 ML IVPB ONE (19:34)
[2017-12-27] MEDS ORDERED: AZITHROMYCIN IV 500 MG in SODIUM CHLORIDE 0.9% 250ML 250 ML IVPB ONE (19:35)
[2017-12-27] MEDS ORDERED: cefTRIAXone SODIUM 1 GM VIAL ONE (19:39)
[2017-12-27] MEDS ORDERED: AZITHROMYCIN IV 500 MG VIAL IVPB ONE (19:39)
[2017-12-27] MEDS ORDERED: SODIUM CHL 0.9% 50ML MIN-BAG+ 50 ML IVPB ONE (19:40)
[2017-12-27] MEDS ORDERED: SODIUM CHLORIDE 0.9% 250ML 250 ML ONE (19:40)
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
--- NOTE | 2017-12-27 20:10 | CT ---
PROCEDURE: CT Head Without Intravenous Contrast CLINICAL INDICATION: The patient is 62 years old and is Male; AMS TECHNIQUE: Axial computed tomography images of the head/brain without intravenous contrast. Sagittal and coronal reformatted images were created and reviewed. This exam was performed according to our departmental dose-optimization program, which includes automated exposure control, adjustment of the mA and/or kV according to patient size and/or use of iterative reconstruction technique. COMPARISON: Prior CT of the brain from 07/15/2016 FINDINGS: BRAIN: There are minimal patchy stable areas of hypodensity in the periventricular white matter, , which are felt to represent the sequela of small vessel ischemic disease (microangiopathy). Early infarcts within the first 12 hours may not be visible on noncontrast CT. The borrego/white matter differentiation is intact. NO intra-or extra-axial fluid collections are seen. There is a tiny stable cortical infarct of the precentral gyrus on axial image 51/64 of series 5 on the RIGHT. No hemorrhage. MIDLINE SHIFT: There is NO midline shift. VENTRICLES: No acute abnormality identified. BONES/JOINTS: Unremarkable. No acute fracture. SOFT TISSUES: The soft tissues of the scalp are unremarkable. VASCULATURE: Intracranial vascular calcifications are noted. SINUSES: The visualized paranasal sinuses are clear. MASTOID AIR CELLS: Unremarkable as visualized. No mastoid effusion. IMPRESSION: 1. No acute intracranial abnormality is identified. 2. No significant interval change when compared to the prior study from 1.5 years earlier. Electronically signed by: Perfecto Meza MD 12/27/2017 8:08 PM LOIN TRIMMER
--- NOTE | 2017-12-27 20:18 | CT ---
PROCEDURE: CT Chest Without Intravenous Contrast CLINICAL INDICATION: The patient is 62 years old and is Male; possible metastasis vs. pneumonia TECHNIQUE: Axial computed tomography images of the chest without intravenous contrast. Sagittal and coronal reformatted images were created and reviewed. This exam was performed according to our departmental dose-optimization program, which includes automated exposure control, adjustment of the mA and/or kV according to patient size and/or use of iterative reconstruction technique. COMPARISON: Prior CT chest without and with contrast from 09/20/2017 FINDINGS: LUNGS: New since the prior study, there is a cluster of inflammatory appearing airspace disease focally in the upper RIGHT middle lobe. These are not cavitary nodules at this point. They appear to be inflammatory in nature. Minimal inflammatory appearing nodularity is identified just above the LEFT hemidiaphragm in the LEFT lower lobe. These findings: be on the basis of pneumonia such as aspiration pneumonia or atypical pneumonia such as ARLEN or fungal infection. Small amount of focal atelectasis in the RIGHT middle lobe medially. PLEURAL SPACE: No pleural effusions identified. No pneumothorax. HEART: No pericardial effusion is identified. There are coronary artery calcifications noted. Heart is enlarged in size. BONES/JOINTS: There are degenerative changes of the spine identified. No acute fracture. No dislocation. SOFT TISSUES: Unremarkable. VASCULATURE: The thoracic aorta is within normal limits without aneurysm. Great vessels are unremarkable in appearance on noncontrast. LYMPH NODES: There is no mediastinal, hilar or axillary lymphadenopathy as best as can be determined on noncontrast CT. TUBES, LINES AND DEVICES: There is an endotracheal tube in place. There is a percutaneous gastrostomy tube in the stomach. IMPRESSION: 1. New since the prior study, there is a cluster of inflammatory appearing airspace disease focally in the upper RIGHT middle lobe. These are not cavitary nodules at this point. They appear to be inflammatory in nature. Minimal inflammatory appearing nodularity is also identified just above the LEFT hemidiaphragm in the LEFT lower lobe. These findings: be on the basis of bilateral pneumonia such as aspiration pneumonia or atypical pneumonia such as ARLEN or fungal infection. 2. There is an endotracheal tube in place. 3. There is a percutaneous gastrostomy tube in the stomach. 4. Small amount of focal atelectasis in the RIGHT middle lobe medially. Electronically signed by: Perfecto Meza MD 12/27/2017 8:17 PM FERRY CAPTAIN
[2017-12-27 20:55] VITALS: O2SAT 97
[2017-12-27] MEDS ORDERED: MORPHINE SULFATE INJ 10 MG/ML VIAL IV ONE (21:25)
[2017-12-27 22:07] VITALS: BP 119/69; TEMP 97.1
== END 2017-12-27 21:55 | disposition short-term general hospital (02) ==
LOC: ER 18:26
DX: J18.9 Pneumonia, unspecified organism (principal); R91.8 Other nonspecific abnormal finding of lung field; C14.0 Malignant neoplasm of pharynx, unspecified; B19.20 Unspecified viral hepatitis C without hepatic coma; K74.60 Unspecified cirrhosis of liver; J44.9 Chronic obstructive pulmonary disease, unspecified; I10 Essential (primary) hypertension; Z93.0 Tracheostomy status; Z86.73 Personal history of transient ischemic attack (TIA), and cerebral infarction without residual deficits; Z79.899 Other long term (current) drug therapy; Z87.891 Personal history of nicotine dependence
CPT/HCPCS: 70450; 71045; 71250; 80053; 80329; 82550; 82553; 82948; 83880; 84436; 84443; 84484; 85025; 85610; 85730; 87040; 93005; J0456; J0696; J2270; J7050

== ENCOUNTER 2018-03-07 17:55 | Emergency (ER) | payer MEDICARE ==
[2018-03-07] MEDS ORDERED: IBUPROFEN 200 MG TAB PO ONE (20:02)
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
[2018-03-07 21:35] VITALS: BP 114/71; TEMP 100.8; O2SAT 93
== END 2018-03-07 21:25 | disposition home or self-care (01) ==
LOC: ER 17:55
DX: J10.1 Influenza due to other identified influenza virus with other respiratory manifestations (principal); C14.0 Malignant neoplasm of pharynx, unspecified; J44.9 Chronic obstructive pulmonary disease, unspecified; I10 Essential (primary) hypertension; B19.20 Unspecified viral hepatitis C without hepatic coma; K74.60 Unspecified cirrhosis of liver; Z92.21 Personal history of antineoplastic chemotherapy; Z85.038 Personal history of other malignant neoplasm of large intestine; Z93.0 Tracheostomy status; Z87.891 Personal history of nicotine dependence; Z86.73 Personal history of transient ischemic attack (TIA), and cerebral infarction without residual deficits

== ENCOUNTER 2018-04-27 12:55 | Emergency (ER) | payer MEDICARE ==
[2018-04-27] MEDS ORDERED: HYDROmorphone HCL INJ 2 MG/ML VIAL IV ONE (13:18)
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
[2018-04-27 14:23] VITALS: O2SAT 95
[2018-04-27 14:40] VITALS: BP 126/66; TEMP 98.3
== END 2018-04-27 14:40 | disposition home or self-care (01) ==
LOC: ER 12:55
DX: L59.9 Disorder of the skin and subcutaneous tissue related to radiation, unspecified (principal); M54.2 Cervicalgia; C15.9 Malignant neoplasm of esophagus, unspecified; J44.9 Chronic obstructive pulmonary disease, unspecified; I10 Essential (primary) hypertension; B19.20 Unspecified viral hepatitis C without hepatic coma; K74.60 Unspecified cirrhosis of liver; Z85.038 Personal history of other malignant neoplasm of large intestine; Z92.21 Personal history of antineoplastic chemotherapy; Z92.3 Personal history of irradiation; Z86.73 Personal history of transient ischemic attack (TIA), and cerebral infarction without residual deficits; Z87.891 Personal history of nicotine dependence; Z93.0 Tracheostomy status
CPT/HCPCS: 80053; 85025; J1170

== ENCOUNTER 2018-05-11 19:19 | Inpatient (IN) | payer MEDICARE ==
[2018-05-11] MEDS ORDERED: ONDANSETRON INJ 4 MG/2 ML VIAL IV ONE (19:39)
[2018-05-11] MEDS ORDERED: SODIUM CHLORIDE 0.9% 1000ML 1,000 ML IVS ONE (19:41)
--- NOTE | 2018-05-11 19:43 | ED.PDOC ---
History of Present Illness - General Chief Complaint: ENT Problem Time Seen by Provider: 05/11/18 19:37 Source: patient, family Exam Limitations: no limitations - History of Present Illness Timing/Duration: yesterday Severity: moderate EENT Location: throat - pt has a tracheostemy in place, was placed by Dr Oglesby. started having pain T-1, then today noted redness and swelling that have gotten significantly bigger Prearrival Treatment: prescription meds Presenting Symptoms: neck pain and swelling Improving Factors: nothing Worsening Factors: eating Associated Symptoms: malaise, sore throat, other - denies fevers, chills, N/V/D, cough, weakness Allergies/Adverse Reactions: Allergies NO KNOWN ALLERGY Allergy (Verified 03/07/18 19:37) Home Medications: Ambulatory Orders Acetaminophen W/ Codeine [Tylenol W/ CODEINE #3] 1 ea PO Q4HR PRN #30 04/27/18 Acetaminophen W/ Codeine [Tylenol w/Codeine 300-30 mg] 1 tab PO Q4H PRN 04/27/18 Gabapentin 600 mg PO BID 04/27/18 Acetamin W/Cod Elix 120/12 [Tylenol/Codiene Elixir 120/12] 15 ml PEG Q4HR PRN #240 ml 05/10/18 Review of Systems - Review of Systems Constitutional: Denies: chills, fever, malaise, weakness EENTM: States: throat pain, throat swelling. Denies: blurred vision Respiratory: Denies: cough, short of breath Cardiology: Denies: chest pain Gastrointestinal/Abdominal: Denies: diarrhea, nausea, vomiting Genitourinary: Denies: dysuria Musculoskeletal: Denies: back pain, joint pain Skin: States: other - redness and swelling to the anterior neck Neurological: Denies: tremors, weakness Endocrine: States: intolerance to cold. Denies: flushing Hematologic/Lymphatic: Denies: easy bleeding, easy bruising All other Systems: Reviewed and Negative Past Medical History (General) - Patient Medical History Hx Seizures: Yes Hx Stroke: No Hx Dementia: No Hx Asthma: No Hx of COPD: Yes Hx Cardiac Disorders: No Hx Congestive Heart Failure: No Hx Pacemaker: No Hx Hypertension: Yes Hx Thyroid Disease: No Hx Diabetes: No Hx Gastroesophageal Reflux: No Hx Renal Disease: No Hx Cancer: Yes - Throat CA Hx of HIV: No Hx Hepatitis C: Yes - declined any treatment, liver cirrhosis Hx MRSA: No - Vaccination History Hx Tetanus, Diphtheria Vaccination: Yes Hx Influenza Vaccination: Yes - 2018 Hx Pneumococcal Vaccination: Yes - Social History Hx Tobacco Use: Yes Hx Chewing Tobacco Use: No Hx Alcohol Use: No Hx Substance Use: No Hx Substance Use Treatment: No Hx Depression: No Hx Physical Abuse: No Hx Emotional Abuse: Yes Hx Suspected Abuse: No - Female History Patient : No Family Medical History - Family History Mother Family History: Unknown Hx Family Asthma: No Physical Exam - Physical Exam General Appearance: Anxious, Emaciated, Frail Eye Exam: bilateral normal Ear Exam: bilateral ear: TM normal Nasal Exam: normal inspection Throat Exam: other - there is marked swelling and redness approx the size of an orange to the anterior neck above the trach site. this is tender to palpation Neck: other - there is marked swelling and redness approx the size of an orange to the anterior neck above the trach site. this is tender to palpation Cardiovascular/Respiratory: regular rate, rhythm, no M/R/G, normal peripheral pulses Abdominal Exam: non-tender Neurologic: property administrator II-XII nml as tested, no motor/sensory deficits Skin Exam: other - redness and swelling to the antior neck above the trach site Progress - Progress Progress: 05/11/18 19:47 A chart review has been performed. Pt is here with a long standing trach in place. This was placed by Dr Oglesby (ENT) in . He has marked swelling and redness of the anterior neck above the trach site, this is very tender to exam. would consider tracheo injury, abscess, cellulitis, bacteremia. 05/11/18 21:44 his blood work shows continues hyponatremia. There is no marked leukocytosis. He is anemic. We are awaiting the results of the CT. He is still hurting and said the morphine did not change his pain, so I have ordered a dose of Dilaudid. 05/11/18 21:50 Reporting MD: Johanny Mejia Keno Manager date: Dictation date: EXAM: CT Neck With Intravenous Contrast CLINICAL HISTORY: 62 years old and is Male; trach in place, marked swelling/redness superior t TECHNIQUE: Axial computed tomography images of the neck with intravenous contrast. Sagittal and coronal reformatted images were created and reviewed. EXAM COMPLETED DATE AND APPROX. TIME: 05/11/2018 9:[address] exam was performed using one or more of the following dose reduction techniques: automated exposure control, adjustment of the mA and/or kV according to patient size, and/or use of iterative reconstruction technique. COMPARISON: 09/21/2017 FINDINGS: Limitations: None. Oropharynx: There is glottic and supraglottic induration with resolution of previously seen masslike characteristic. No significant tonsillar enlargement. No peritonsillar abscess. Hypopharynx: Unremarkable. Larynx: Epiglottis appears normal. Trachea: Unremarkable. Retropharyngeal space: Unremarkable. Submandibular/parotid glands: Unremarkable. Glands are normal in size. Thyroid: Unremarkable. No enlarged or calcified nodules. Bones/joints: No acute fracture. Soft tissues: There is mild anterior soft tissue induration at and cranial to the tracheostomy without fluid collection. No soft tissue gas collection. Vasculature: No acute findings. Lymph nodes: Persistent but decreased shotty and mildly enlarged cervical lymph nodes. Lung apices: Unremarkable as visualized. Tubes, lines and devices: Tracheostomy in good position. IMPRESSION: 1. There is mild anterior soft tissue induration at and cranial to the tracheostomy without fluid collection. Findings most consistent with cellulitis. I have discussed with Dr Oglesby, recommended start with IV abx and admission. If he is not improving or there is any worseing to then be transferrrd to [facility]> will admit at this time. I have discussed with Isela Colvin. 05/11/18 21:58 Departure - Departure Clinical Impression: Cellulitis of neck Esophageal cancer Qualifiers: Malignant neoplasm of esophagus location: unspecified location Qualified Code(s): C15.9 - Malignant neoplasm of esophagus, unspecified Time of Disposition: 22:00 Disposition: Admit Patient Condition: Good Departure Forms: ED Discharge - Pt. Copy, Patient Portal Self Enrollment Instructions: DI for Ear Pain-Adult Diet: resume usual diet Activity: walking as tolerated Referrals: Chilango Stack MD [Primary Care Provider] - 1-2 Weeks Home Medications: Ambulatory Orders Acetaminophen W/ Codeine [Tylenol W/ CODEINE #3] 1 ea PO Q4HR PRN #30 04/27/18 Acetaminophen W/ Codeine [Tylenol w/Codeine 300-30 mg] 1 tab PO Q4H PRN 04/27/18 Gabapentin 600 mg PO BID 04/27/18 Acetamin W/Cod Elix 120/12 [Tylenol/Codiene Elixir 120/12] 15 ml PEG Q4HR PRN #240 ml 05/10/18 Decision To Admit - Decistion To Admit Decision to Admit Reason: Medical Nature Decision to Admit Date: 05/11/18 Decision to Admit Time: 21:55
[2018-05-11] MEDS: MORPHINE SULFATE INJ 10 MG/ML VIAL IV ONE ×2 (20:01→20:09)
[2018-05-11] MEDS ORDERED: HYDROmorphone HCL INJ 2 MG/ML VIAL IV ONE (21:43)
[2018-05-11] MEDS ORDERED: AMPICILLIN & SULBACTAM SODIUM 3 GM in SODIUM CHL 0.9% 100ML MINI-BAG 100 ML IVPB ONE (21:56)
[2018-05-11] MEDS ORDERED: VANCOMYCIN HCL INJ 1,000 MG in SODIUM CHLORIDE 0.9% 250ML 250 ML IVPB ONE (21:56)
[2018-05-11] MEDS ORDERED: AMPICILLIN & SULBACTAM SODIUM 3 GM VIAL ONE ×2 (21:58→23:40)
[2018-05-11] MEDS ORDERED: SODIUM CHL 0.9% 100ML MINI-BAG 100 ML IVPB ONE ×2 (21:59→23:40)
[2018-05-11] MEDS ORDERED: VANCOMYCIN HCL INJ 1,000 MG VIAL IVPB ONE (22:31)
[2018-05-11] MEDS ORDERED: SODIUM CHLORIDE 0.9% 250ML 250 ML ONE (22:31)
--- NOTE | 2018-05-11 22:34 | HP ---
SUPERVISING PHYSICIAN: Kenji Bangura M.D. CHIEF COMPLAINT: Neck pain. HISTORY OF PRESENT ILLNESS: This is a 62 year-old male patient who has a history of throat cancer diagnosed in October of 2017. At that time a tracheostomy was placed by Dr. Oglesby [place]. He had been having some pain in his anterior neck for several days and his daughter noticed yesterday that it was quite swollen and red. He denies any significant fever or feeling any differently other than pain in his neck. He came to the Emergency Room and his workup showed a sodium of 128, potassium 4.8, chloride 92, BUN 27, creatinine 1.06, glucose 89, serum osmolality 261.7, lactic acid 0.5. C reactive protein 1.3. WBCs were 10,500 with hemoglobin 9.1 and 26.5. He did have a left shift on his differential and he had an ESR of 126. Blood cultures were done. Dr. Espinoza, Doc. Harvey. physician, called his ENT, Dr. Oglesby in [place]. Dr. Oglesby thought that the patient could be treated here at the hospital with antibiotics and if his condition worsened or he did not improve, that he could be transferred to [facility] for further treatment. I was called for hospital admission. PAST MEDICAL HISTORY: 1. Diagnosed with hepatitis C many years ago with some alcoholic liver disease. He says he has not been tested for that in many years and said he no longer has it. 2. Chronic obstructive pulmonary disease with a long significant history of smoking. 3. Throat cancer diagnosed in October of 2017. PAST SURGICAL HISTORY: 1. Tracheostomy due to throat cancer in October of 2017. 2. PEG tube placement in February of 2018. CURRENT MEDICATIONS: 1. Acetaminophen with codeine elixir. 2. Gabapentin. ALLERGIES: NO KNOWN DRUG ALLERGIES. SOCIAL HISTORY: He lives in [place]. He is retired. He smokes approximately 2 cigarettes daily. Prior to his diagnosis of throat cancer in October of 2017, he smoked 2 packs of cigarettes a day since he was a teenager. He is . He has 5 children. He also drank quite a bit of alcoholic beverages and he quit drinking in October of 2017. He denies any illicit drug use. REVIEW OF SYSTEMS: Positive for some mild weight loss but negative for fevers or chills. HEENT: Negative for sinus symptoms, ear pain, vision changes. He does have the pain to his anterior neck. LUNGS: Positive for shortness of breath and coughing but that is baseline. Negative for wheezing. CARDIOVASCULAR: Negative for chest pains, palpitations or tachycardia. GASTROINTESTINAL: Negative for nausea, vomiting, diarrhea or constipation. EXTREMITIES: Denies any pedal edema. GENITOURINARY: Negative for hematuria, dysuria or polyuria. NEUROLOGIC: Negative for headaches, dizziness or seizures. PHYSICAL EXAMINATION: VITAL SIGNS: Temperature 98.7, heart rate 70, blood pressure 130/70, respiratory rate 20, O2 sat 96% on 2 liters nasal cannula. GENERAL: This is a thin 62 year-old male patient who is disheveled and looks somewhat older than his stated age. HEENT: Normocephalic and atraumatic. Pupils are equal and reactive. Oropharynx is clear. NECK: Supple without mass but he does have a tracheostomy in place. There is also some swelling and erythema just superior to the tracheostomy. There is no drainage or fluctuance. It is difficult to tell if there is any tracheostomy involvement in the cellulitis. RESPIRATORY: Diminished throughout. CHEST: There is equal rise and fall of the chest with inspiration and expiration. CARDIOVASCULAR: Regular rate and rhythm. GASTROINTESTINAL: Abdomen is soft, nondistended, non-tender. He does have the PEG tube in place. NEUROLOGIC: He is awake, alert and oriented times three. Cranial nerves II-XII are grossly intact. INTEGUMENT: As per the History of Present Illness. LABORATORY: Labs and films are as per the history of present illness. ASSESSMENT: 1. Cellulitis of the anterior neck status post tracheostomy in October of 2017. 2. History of throat cancer diagnosed in October of 2017 followed by oncology in [place] as well as Dr. Oglesby, ENT in [place]. He received radiation as well as chemotherapy but he has completed all of his treatments. Dr. Oglesby placed a tracheostomy in October of 2017. 3. Chronic obstructive pulmonary disease without acute exacerbation. The patient does continue to smoke 2 cigarettes daily. Prior to his throat cancer diagnosis he smoked 2 packs daily. 4. History of hepatitis C with alcoholic fatty liver disease. He quit drinking in October of 2017. PLAN: We will admit the patient to the hospital. He will be continued on his vancomycin and Unasyn as recommended by Dr. Oglesby. Dr. Oglesby did say if he did not improve that he would take the patient in transfer to [place]. I will repeat his CRP and his ESR on Monday as he has no leukocytosis at this point. Will repeat his labs tomorrow. He also says he has finished his cancer treatment but he is to have a PET scan in [place] on Monday the . Will continue good pulmonary hygiene. The patient also insisted he does his own tracheostomy care and suctioning and since he does that at home, I will let him continue with that. We are at this point trying to figure out his tube feedings as well as his free water and his daughter is supposed to bring those instructions up here. He does take care of that at home himself and he has feedings every 3 hours, and at this point I have no issues with him continuing to do his PEG feedings with the assistance of the nurse. Otherwise we will continue to follow him closely and treat as needed. #[id number] [facility]
[2018-05-11] MEDS ORDERED: ONDANSETRON INJ 4 MG/2 ML VIAL IV PRN (23:04)
[2018-05-11] MEDS ORDERED: SODIUM CHLORIDE 0.9% (FLUSH) 10 ML SYG IV PRN (23:04)
[2018-05-11] MEDS ORDERED: HYDROcodone 5MG/APAP 325MG 1 EA TAB PO PRN (23:08)
[2018-05-11] MEDS ORDERED: IV SET AND CAP CHANGE INJ INJ SCH (23:30)
[2018-05-11] MEDS ORDERED: HYDROcodone 5MG/APAP 325MG 1 EA TAB ONE (23:35)
[2018-05-11] MEDS: NICOTINE PATCH 14 MG TD SCH (23:52)
[2018-05-11] MEDS: SODIUM CHLORIDE 0.9% 1000ML 1,000 ML IVS PRN (23:52)
[2018-05-11] MEDS: ACETAMINOPHEN 120/CODEINE 12 5 ML UD GT PRN (23:53)
[2018-05-12] MEDS: AMPICILLIN & SULBACTAM SODIUM 3 GM in SODIUM CHL 0.9% 100ML MINI-BAG 100 ML IVPB SCH ×4 (02:51→20:47)
[2018-05-12] MEDS: ACETAMINOPHEN 120/CODEINE 12 5 ML UD GT PRN (05:39)
[2018-05-12] MEDS: PANTOPRAZOLE SODIUM IV 40 MG VIAL IV SCH (07:49)
[2018-05-12] MEDS ORDERED: VANCOMYCIN PER PHARMACY IVPB SCH (08:00)
[2018-05-12] MEDS: HYDROmorphone HCL INJ 2 MG/ML VIAL IV PRN ×4 (08:35→20:48)
[2018-05-12] MEDS ORDERED: AMPICILLIN & SULBACTAM SODIUM 3 GM VIAL ONE ×4 (08:50→19:59)
[2018-05-12] MEDS ORDERED: SODIUM CHL 0.9% 100ML MINI-BAG 100 ML IVPB ONE ×4 (08:50→19:59)
[2018-05-12] MEDS: NICOTINE PATCH 14 MG TD SCH (09:00)
[2018-05-12] MEDS ORDERED: SODIUM CHLORIDE 0.9% (FLUSH) 10 ML SYG IV SCH (09:00)
[2018-05-12] MEDS ORDERED: SODIUM CHLORIDE 0.9% 250ML 250 ML ONE ×2 (11:34→19:57)
[2018-05-12] MEDS: SODIUM CHLORIDE 0.9% 1000ML 1,000 ML IVS PRN (11:34)
[2018-05-12] MEDS ORDERED: VANCOMYCIN HCL INJ 1,000 MG VIAL IVPB ONE ×2 (11:34→19:58)
[2018-05-12] MEDS: VANCOMYCIN HCL INJ 1,000 MG in SODIUM CHLORIDE 0.9% 250ML 250 ML IVPB SCH ×2 (11:38→22:05)
[2018-05-12] MEDS: [UNRECOGNIZED DRUG - REMARK] GT SCH ×5 (12:30→23:39)
[2018-05-12] MEDS: GABAPENTIN 300 MG CAP PO SCH ×4 (16:15→20:47)
--- NOTE | 2018-05-12 16:36 | PN ---
DATE: 05/12/18 SUPERVISING PHYSICIAN: Kenji Bangura M.D. SUBJECTIVE: The patient is sitting in his chair in his hospital room. He continues to complain of pain in his anterior neck. He complains that the Dilaudid was not effective and he needed a higher dose. I also explained to him that we are going to treat him for several days for his cellulitis and that if he did not improve that he would be transferred to [place] and Dr. Oglesby, his ENT, would assume care. He denies any shortness of breath, nausea, vomiting, diarrhea or constipation. OBJECTIVE: VITAL SIGNS: Temperature 97, heart rate 58, blood pressure 130/69, respiratory rate 24, O2 sat 95% on room air. RESPIRATORY: Diminished breath sounds throughout. CARDIAC: Regular rate and rhythm. At times he is very slightly bradycardic. GASTROINTESTINAL: Abdomen is soft, nondistended, non- tender. He does have a PEG in place. SKIN: The area to is anterior neck continues to be erythematous and edematous. No drainage or fluctuance noted. NEUROLOGIC: He is awake, alert and oriented times three. LABORATORY: WBCs are 9.4, hemoglobin 9.3, hematocrit 27.6. Sodium has improved to 131 with potassium 4.7, chloride 100, carbon dioxide 20, BUN 21, creatinine 0.95. Serum osmolality 264.6. Preliminary blood cultures show no growth. He did have a CT exam that was done in the Emergency Room and there was no report available. The CT of the soft tissues of the neck shows: 1) Mild anterior soft tissue induration at and superior to the tracheostomy without fluid collection. Findings most consistent with cellulitis. 2) There is induration with interval resolutions of areas of irregular mass-like enhancement in the glottic and supraglottic regions with abnormal appearance of the epiglottis. All other labs and films have been reviewed via the EMR. ASSESSMENT: 1. Cellulitis of the anterior neck status post tracheostomy in October of 2017. 2. History of throat cancer diagnosed in October of 2017 followed by oncology in [place] as well as Dr. Oglesby, ENT in [place]. He received radiation as well as chemotherapy but he has completed all of his treatments. Dr. Oglesby placed a tracheostomy in October of 2017. 3. Chronic obstructive pulmonary disease without acute exacerbation. The patient does continue to smoke 2 cigarettes daily. Prior to his throat cancer diagnosis he smoked 2 packs daily. 4. History of hepatitis C with alcoholic fatty liver disease. He quit drinking in October of 2017. PLAN: We will continue present supportive care. He will continue on his Unasyn and vancomycin. I will culture the tracheostomy area to make sure there is no Pseudomonas. We will continue with good pulmonary hygiene. The patient is doing his own tracheostomy care as well as tube feedings, but we will monitor those. I have ordered some lab for in the morning and will need to order a CRP and an ESR on Monday morning to monitor his progress. Will continue to monitor closely and follow as needed. #[id number] [facility]
[2018-05-12] MEDS: NON-FORMULARY MEDICATION 1 EA MIS GT SCH ×5 (17:09→23:40)
[2018-05-12] MEDS ORDERED: ENOXAPARIN SODIUM 40 MG/0.4 ML SYG SUBCU SCH (21:00)
[2018-05-12] MEDS ORDERED: NICOTINE PATCH 14 MG TD SCH (21:00)
[2018-05-13] MEDS: SODIUM CHLORIDE 0.9% 1000ML 1,000 ML IVS PRN ×2 (01:05→11:38)
[2018-05-13] MEDS: HYDROmorphone HCL INJ 2 MG/ML VIAL IV PRN ×5 (01:57→18:43)
[2018-05-13] MEDS: NON-FORMULARY MEDICATION 1 EA MIS GT SCH ×6 (02:37→19:05)
[2018-05-13] MEDS: AMPICILLIN & SULBACTAM SODIUM 3 GM in SODIUM CHL 0.9% 100ML MINI-BAG 100 ML IVPB SCH ×3 (02:37→15:35)
[2018-05-13] MEDS: [UNRECOGNIZED DRUG - REMARK] GT SCH ×6 (02:37→19:05)
[2018-05-13] MEDS: PANTOPRAZOLE SODIUM IV 40 MG VIAL IV SCH (06:12)
[2018-05-13] MEDS ORDERED: AMPICILLIN & SULBACTAM SODIUM 3 GM VIAL ONE ×2 (10:00→15:15)
[2018-05-13] MEDS ORDERED: SODIUM CHL 0.9% 100ML MINI-BAG 100 ML IVPB ONE ×2 (10:00→15:15)
[2018-05-13] MEDS: GABAPENTIN 300 MG CAP PO SCH ×3 (10:14→18:48)
[2018-05-13] MEDS ORDERED: VANCOMYCIN HCL INJ 750 MG in SODIUM CHLORIDE 0.9% 250ML 250 ML IVPB SCH (11:00)
[2018-05-13] MEDS ORDERED: SODIUM CHLORIDE 0.9% 250ML 250 ML ONE (11:25)
[2018-05-13] MEDS ORDERED: VANCOMYCIN HCL INJ 1,000 MG VIAL IVPB ONE (11:25)
[2018-05-13 15:42] VITALS: TEMP 98.6
[2018-05-13 18:52] VITALS: BP 160/67; O2SAT 99
[2018-05-13] MEDS: VANCOMYCIN HCL INJ 1,000 MG in SODIUM CHLORIDE 0.9% 250ML 250 ML IVPB SCH (19:32)
--- NOTE | 2018-05-14 13:50 | DS ---
SUPERVISING PHYSICIAN: Kenji Bangura MD DISCHARGE DIAGNOSIS: 1. Cellulitis of the anterior neck status post tracheostomy in October of 2017. 2. History of esophageal cancer diagnosed in October of 2017 followed by oncology in [place] as well as Dr. Oglesby, ENT in [place]. He received radiation as well as chemotherapy and has completed all of his treatments. Dr. Oglesby placed a tracheostomy in October of 2017. 3. Chronic obstructive pulmonary disease without acute exacerbation. The patient has a history of smoking 2 cigarettes daily. He continues to smoke 2 cigarettes daily. 4. History of hepatitis C with alcoholic fatty liver disease. He quit drinking in October of 2017. HISTORY OF PRESENT ILLNESS: This is a 62-year-old male patient who presented to the Emergency Room for swelling in his anterior neck. He was diagnosed with esophageal cancer in October of 2017. Dr. Oglesby, ENT in [place], placed a tracheostomy in October of 2017. He also has a PEG tube. He has had some pain in his anterior neck just superior to the tracheostomy tube. His daughter noticed it was quite swollen and erythematous. He denied any significant fever or shortness of breath. Dr. Espinoza, the Emergency Room physician, spoke to his ENT, Dr. Oglesby in [place]. Dr. Oglesby thought that the patient could be treated here in our hospital with aggressive antibiotic therapy of Unasyn and vancomycin. He was admitted to the hospital. HOSPITAL COURSE: The patient was treated with vancomycin and Unasyn. The patient at times was difficult in that he wanted to do his own trach care as well as wanted to do his own tube feedings. He takes tube feedings every 4 hours at home. He actually pulled out several IVs and frequently asked for Dilaudid specifically. He was given pain control as well as his home medications restarted. The patient finally allowed respiratory therapy to do trach care. Culture of the trach drainage was taken. After two days of treatment with antibiotic therapy, the area of cellulitis was not improved and the cellulitis did worsen. He had no complaints of shortness of breath, nausea, vomiting, diarrhea or constipation. He did not do any tube feedings or free water on the date of discharge as the patient refused. Due to the increasing erythema as well as increasing edema, Dr. Oglesby, ENT, was contacted and it was felt that he could be transferred to [facility] for treatment most likely with I&D. LABORATORY: WBCs initially were 10.5 and continued to be stable at 9.4. Hemoglobin and hematocrit were stable at 9.3 and 27.6. He did have a mild left shift on his differential and his ESR was 126. His sodium initially was 128 and is now 131. Potassium was stable at 4.7, chloride 100, BUN 27 on admission and 21 on discharge of discharge. His creatinine on admission was 1.06 and today is 0.95. His C-reactive protein was 1.3. MICROBIOLOGY: Preliminary blood cultures showed no growth after 48 hours and his wound culture is pending. RADIOLOGY: CT of the soft tissues of the neck showed 1) Mild anterior soft tissue induration superior to the tracheostomy without fluid collection. Findings most consistent with cellulitis. 2) Induration with interval resolution of areas of irregular mass-like enhancement in the glottic and supraglottic regions with abnormal appearance of the epiglottis. DISCHARGE PLAN: The patient will be discharged to [facility]. Dr. Grant, hospitalist, accepted the patient in transfer. Dr. Oglesby will be consulted. He is to be NPO at midnight for possible treatment in the morning. We will monitor for his throat culture and make it available for Dr. Oglesby. He is to followup with Dr. Stack at [facility] on discharge. DISCHARGE MEDICATIONS: 1. Gabapentin. 2. Acetaminophen with codeine. [facility][id number] [facility]
== END 2018-05-13 20:13 | disposition short-term general hospital (02) | DRG 206 ==
LOC: ER 19:19 → MS 22:32 → OBSVTOIN 22:32
PROVIDERS: ADMIT Nurse Practitioner Acute Care; ATTEND Emergency Medicine
DX: J95.02 Infection of tracheostomy stoma (principal); L03.221 Cellulitis of neck; Y83.8 Other surgical procedures as the cause of abnormal reaction of the patient, or of later complication, without mention of misadventure at the time of the procedure; Y81.2 Prosthetic and other implants, materials and accessory general- and plastic-surgery devices associated with adverse incidents; Y92.9 Unspecified place or not applicable; D64.9 Anemia, unspecified; J44.9 Chronic obstructive pulmonary disease, unspecified; K70.0 Alcoholic fatty liver; F17.210 Nicotine dependence, cigarettes, uncomplicated; Z85.01 Personal history of malignant neoplasm of esophagus; Z92.3 Personal history of irradiation; Z92.21 Personal history of antineoplastic chemotherapy; Z93.1 Gastrostomy status; Z79.891 Long term (current) use of opiate analgesic; Z79.899 Other long term (current) drug therapy; Z86.19 Personal history of other infectious and parasitic diseases

== ENCOUNTER → 2018-05-29 | Outpatient (CLI) | payer MEDICARE ==
--- NOTE | 2018-05-30 09:01 | RAD ---
EXAM DESCRIPTION: Wrist,Left 3 Views CLINICAL HISTORY: CONTUSION OF LEFT WRIST COMPARISON: None. TECHNIQUE: 3 views left FINDINGS: Calcification of the triangular fibrocartilage is observed. Widening of the scapholunate joint space is observed consistent with a scapholunate ligament tear. No fracture is detected. Arterial calcification is noted. A small metallic foreign body is observed in the ulnar side of the wrist medial to the distal ulna. A second small foreign body is observed in the base of the second digit in the palmar aspect of the hand IMPRESSION: Degenerative changes are observed in the wrist with widening of the scapholunate joint space consistent with a scapholunate ligament tear. Electronically signed by: Percy Weber MD 05/30/2018 8:58 AM CDT
== END ==
LOC: LAB.O 12:27
PROVIDERS: ATTEND Family Medicine
DX: S60.212A Contusion of left wrist, initial encounter (principal); M19.032 Primary osteoarthritis, left wrist

== ENCOUNTER → 2018-07-16 | Outpatient (CLI) | payer MEDICARE ==
--- NOTE | 2018-07-17 07:33 | CT ---
EXAM DESCRIPTION: Chest w/o Contrast CLINICAL HISTORY: MULTIPLE LUNG NODULES COMPARISON: December 27, 2017 TECHNIQUE: Noncontrast transaxial CT images of the chest are obtained. This exam was performed according to our departmental dose-optimization program, which includes automated exposure control, adjustment of the mA and/or kV according to patient size and/or use of iterative reconstruction technique . FINDINGS: Tracheostomy tube remains in good positioning. Heart is enlarged. Severe coronary artery calcifications are stable. Small pericardial effusion slightly more prominent than previous. No pathologically enlarged mediastinal, hilar, or axillary lymphadenopathy seen. Visualized upper abdomen shows no acute findings. Gastrostomy tube is partly included in [id number]. Lungs are mildly hyperinflated. Interval worsening of bronchial wall thickening primarily involving the left lower lobe with peripheral interstitial nodular changes again seen in the left lower lobe increased from previous. Mild bronchial wall thickening in the lingula of the left upper lobe is seen. Patchy areas of interstitial nodular, tree-in-bud appearance is also seen in the inferior right middle lobe and medial mid left upper lobe with less atelectasis in the right middle lobe medial segment that seen previously. Patchy or consolidation in the right hilar region seen previously is resolved. Osseous structures show no aggressive bony lesions. Degenerative changes of the shoulders are seen left greater than right. Bridging marginal endplate osteophytes over multiple levels of the thoracic spine suggest diffuse idiopathic skeletal hyperostosis. IMPRESSION: Interval resolution of the area of airspace infiltrate in the right hilar region on previous exam. Interval worsening of bronchial wall thickening and tree-in-bud interstitial nodular changes in the left lower lobe and to a lesser degree lingula and right middle lobe compared to previous exam. This most likely represents infectious or inflammatory process such as MAC disease. Stable tracheostomy. Stable atherosclerotic disease including severe coronary artery calcifications. Electronically signed by: Carlos Avila MD 07/17/2018 7:31 AM CDT
--- NOTE | 2018-07-17 09:15 | CT ---
EXAM DESCRIPTION: CTA Lower Extremity CLINICAL HISTORY: I73.9 ASPVD. Leg pain COMPARISON: CT abdomen pelvis November 16, 2016 TECHNIQUE: Postcontrast CTA images of the abdomen, pelvis, and bilateral lower extremities are obtained with coronal and sagittal reconstructed images. Three-D reconstructed images of the arterial vasculature are performed. Images are mildly degraded by patient motion artifact. This exam was performed according to our departmental dose-optimization program, which includes automated exposure control, adjustment of the mA and/or kV according to patient size and/or use of iterative reconstruction technique . FINDINGS: Visualized lung bases show infectious or inflammatory changes in the left lower lobe as described on CT of the chest from today. The liver, spleen, pancreas, and adrenal glands are unremarkable. Gallbladder is nonvisualized. Normal cortical enhancement is seen in the kidneys. No hydronephrosis. Appendix is normal. No inflammatory changes of the stomach, small bowel, or colon. Gastrostomy tube is seen in good positioning. Small amount of simple ascites in the lower pelvis seen. Urinary bladder is partly distended. Prostate is enlarged with moderate calcifications. No pathologic lymphadenopathy. Moderate calcified and noncalcified atherosclerotic disease is seen. No aneurysmal dilatation of the aorta. Moderate stenosis at the origin of the celiac artery with mild poststenotic dilatation branch vessels are patent. Mild stenosis of the proximal to mid superior mesenteric artery. Moderate focal stenosis at the origin of a patent inferior mesenteric artery with moderate proximal atherosclerotic disease. Bilateral single main renal arteries are seen without high-grade or flow limiting stenosis. No aortic stenosis. Severe calcified and noncalcified plaque of the iliac arteries. High-grade stenosis at the origin of the right internal iliac artery. Moderate to severe stenosis of the origin of the right external iliac artery diffuse narrowing of the mid to distal external iliac artery. Severe stenosis at the origin of the left internal iliac artery. Occlusion of the left external iliac artery just beyond the origin is seen. Reconstitution of the common femoral artery secondary to collateral vessels mainly from the inferior epigastric and lateral pelvis. Right lower extremity: Moderate scattered focal areas of calcified and noncalcified plaque throughout the superficial femoral artery are seen with multisegment mild to moderate stenoses most significant in the mid to distal right SFA. Moderate plaque in the superficial femoral artery with mild stenosis. Severe calcified plaque of the tibioperoneal trunk with severe stenosis. Moderate to severe scattered calcified plaque of the trifurcation vessels limits evaluation. Anterior tibialis artery is occluded proximally. Opacification of the peroneal artery to the distal tibia with prominent collateral branches extending posterior and anterior laterally are seen. The peroneal artery supplies the dorsalis pedis. Probable occlusion of the distal posterior tibialis artery. Left lower extremity: Occlusion of the left proximal superficial femoral artery. The SFAs thrombosed to the level of the distal SFA. Severe calcified plaque throughout branches of the profunda femoris artery are seen with multiple segment stenoses. Branches of these vessels reconstitute the distal superficial femoral artery to popliteal artery which shows moderate stenosis. Moderate scattered calcified plaque of the trifurcation vessels is seen with multiple segment uavi-zl-xsazqtyi stenosis. The posterior tibialis artery is occluded proximally. Opacification of the anterior tibialis artery and peroneal artery to the foot are seen. Small right Atwood's cyst is seen. IMPRESSION: Moderate to severe calcific and noncalcified atherosclerotic disease of the abdomen, pelvis, and bilateral lower extremities. Moderate stenosis at origin of celiac artery. Occlusion of the left external iliac artery with reconstitution of the common femoral artery via multiple collateral vessels. Severe stenosis at the origin of the right and left internal iliac arteries with moderate to severe stenosis at the origin of the right external iliac artery. Multiple segment wqdj-jw-jlgffdxm stenoses throughout the right superficial femoral artery to popliteal artery with multiple segment fzcs-wi-cvnushkx stenosis of the trifurcation vessels. At least two-vessel distal runoff on the right. Occlusion over a long segment of the left superficial femoral artery with reconstitution of the distal SFA via branches of the profunda femoris. Moderate stenosis of the popliteal artery with multiple segment ggoi-tb-ghveswlv stenosis of the trifurcation vessels. Anterior tibialis artery and peroneal artery appear opacified to the left foot. Small simple ascites in the pelvis is a unknown etiology. Gastrostomy tube seen in place. Electronically signed by: Carlos Avila MD 07/17/2018 9:13 AM CDT
== END ==
LOC: CT 08:29
PROVIDERS: ATTEND Family Medicine
DX: I73.9 Peripheral vascular disease, unspecified (principal); R91.8 Other nonspecific abnormal finding of lung field; I70.91 Generalized atherosclerosis; I70.203 Unspecified atherosclerosis of native arteries of extremities, bilateral legs; I25.10 Atherosclerotic heart disease of native coronary artery without angina pectoris; R18.8 Other ascites; Z93.1 Gastrostomy status; Z93.0 Tracheostomy status

== ENCOUNTER 2018-07-29 23:05 | Emergency (ER) | payer MEDICARE ==
[2018-07-29] MEDS: ALUMINUM & MAGNESIUM HYDROXIDE 30 ML UD GT ONE (23:49)
[2018-07-29] MEDS: MORPHINE SULFATE INJ 10 MG/ML VIAL IV ONE (23:49)
[2018-07-29] MEDS: HYDROcodone 7.5MG/APAP 325MG 1 EA TAB GT ONE (23:49)
[2018-07-30] MEDS: SOD CHL 3% *HYPERTONIC* 500ML 160 ML IVS ONE (00:58)
--- NOTE | 2018-07-30 01:07 | CT ---
EXAM DESCRIPTION: Head CLINICAL HISTORY: 63 years Male neurological deficits COMPARISON: Prior study dated December 27, 2017. TECHNIQUE: Images were obtained in axial, sagittal, and coronal planes. This exam was performed according to our departmental dose-optimization program which includes use of Automated Exposure Control, adjustment of the mA and/or kV according to patient size and/or use of iterative reconstruction technique. FINDINGS: Ventricular system appears normal. Cavum septum lucidum noted. Moderate periventricular decreased attenuation consistent with more remote microvascular ischemic change. No abnormal areas of increased attenuation seen. No extra-axial fluid collections noted. No evidence for skull fracture. Unremarkable paranasal sinuses. Symmetric aeration mastoid air cells bilaterally. IMPRESSION: No acute intracranial abnormality. No evidence for hemorrhage, mass lesion, or large acute infarction. Findings unchanged when correlated with the prior study. Electronically signed by: Whitley Graham MD 07/30/2018 1:05 AM CDT
--- NOTE | 2018-07-30 01:11 | CT ---
EXAM DESCRIPTION: Cervical Spine CLINICAL HISTORY: 63 years Male neurological deficits COMPARISON: None TECHNIQUE: Images were obtained in axial, sagittal, and coronal planes. This exam was performed according to our departmental dose-optimization program which includes use of Automated Exposure Control, adjustment of the mA and/or kV according to patient size and/or use of iterative reconstruction technique. FINDINGS: Height of the vertebral bodies is intact. Satisfactory alignment articular facets. Intact odontoid and predental space. Prevertebral soft tissues appear normal. Extensive bridging anterior osteophytes C3-T1. Intact ring C1. Posterior elements intact all levels. Intact occipital condyles. Chronic changes lung apices bilaterally. Tracheostomy tube present. No focal disc protrusion seen. IMPRESSION: No acute fracture or subluxation seen. Severe multilevel osteoarthritic change. Electronically signed by: Whitley Graham MD 07/30/2018 1:09 AM CDT
--- NOTE | 2018-07-30 01:17 | CT ---
EXAM: CT chest with contrast. INDICATION: Chest pain. TECHNIQUE: Contiguous axial CT images of the chest. Intravenous contrast: Present. DLP 690 mGy-cm. This exam was performed according to our departmental dose-optimization program, which includes automated exposure control, adjustment of the mA and/or kV according to patient size and/or use of iterative reconstruction technique. COMPARISON: 07/16/2018. FINDINGS: Upper abdomen: Partially imaged. Thoracic aorta: Atherosclerotic calcifications Heart: Atherosclerotic calcifications of the coronary arteries. There is an enlarging pericardial effusion which measures up to 9 mm in thickness. Mediastinum: No pathologic sized middle mediastinal lymphadenopathy. Tracheobronchial tree: There is some bronchial wall thickening with mucus plugging and secretions along the left lower lobe. There is some bronchial wall thickening involving the lingula. A tracheostomy tube is in place. Lungs: Lobar consolidation: There are persistent tree-in-bud opacities along the left lower lobe, lingula, and right middle lobe, worse within the left lower lobe.. Pleural effusion: Tiny bilateral Pneumothorax: Negative. Other: Negative. Bones: Unremarkable. IMPRESSION: Mild increase in size of the pericardial effusion. Persistent bronchial wall thickening with secretions and mucous plugging, worst within the left lower lobe. Tree-in-bud opacities within the right middle lobe, lingula, and left lower lobe, likely due to an infectious/inflammatory process. Electronically signed by: Bandar Ferreira MD 07/30/2018 1:15 AM CDT Workstation: [id number]
--- NOTE | 2018-07-30 01:26 | CT ---
EXAM: CT abdomen and pelvis with contrast. INDICATION: Abdominal pain, acute. TECHNIQUE: Contiguous axial CT images of the abdomen and pelvis. Intravenous contrast: Present. Oral contrast: Absent. DLP 690 mGy-cm. This exam was performed according to our departmental dose-optimization program, which includes automated exposure control, adjustment of the mA and/or kV according to patient size and/or use of iterative reconstruction technique. COMPARISON: 11/16/2016. FINDINGS: Pericardial effusion is noted. There are tiny bilateral pleural effusions. There are tree-in-bud opacities involving the lung bases, worse along the left lower lobe. Solid abdominal viscera: Liver: Unremarkable. Gallbladder: Unremarkable. Pancreas: Unremarkable. Spleen: Unremarkable. Adrenal glands: Unremarkable. Right kidney: No hydronephrosis. Left kidney: No hydronephrosis. Urinary bladder: Unremarkable. Abdominal aorta: Extensive atherosclerotic disease of the abdominal aorta and iliac branches. Peritoneal: Free fluid: None. Free air: None. Other: No pathologic sized lymph nodes in the upper abdomen. Bowel: Stomach: PEG tube is in place Small bowel: Unremarkable. Appendix: Unremarkable. Colon: Unremarkable. Rectum: Unremarkable. Prostate all: Unremarkable. Bones: There is multilevel spondylosis. IMPRESSION: Pericardial effusion. Tiny bilateral pleural effusions. Tree-in-bud opacities affecting the lung bases, likely due to an infectious/inflammatory process. No acute findings within the abdomen or pelvis. Extensive atherosclerotic disease involving the abdominal aorta and iliac branches. Electronically signed by: Bandar Ferreira MD 07/30/2018 1:23 AM CDT Workstation: [id number]
[2018-07-30] MEDS ORDERED: LIDOCAINE 1% 2 ML VIAL INJ ONE (02:00)
[2018-07-30] MEDS: cefTRIAXone SODIUM 1 GM VIAL IM ONE (02:02)
[2018-07-30] MEDS: FOLIC ACID 1 MG TAB GT ONE (02:03)
[2018-07-30] MEDS: ASPIRIN TABLET 325 MG TAB GT ONE (02:03)
[2018-07-30] MEDS: THIAMINE HCL 100 MG TAB PO ONE (02:03)
[2018-07-30] MEDS: IPRATROPIUM/ALBUTEROL 3 ML VIAL NEB ONE (02:08)
--- NOTE | 2018-07-30 02:12 | ED.PDOC ---
History of Present Illness - General Chief Complaint: Chest Pain/[place] Stated Complaint: Chest Pain Time Seen by Provider: 07/29/18 23:08 Source: patient Exam Limitations: no limitations - History of Present Illness Initial Comments: the patient is a 63-year-old male presenting to the emergency room secondary to fairly abrupt onset chest pain while he was sitting on the porchdrinking some beer. When EMS arrived they found a glucose of 35. He was given D50 and that corrected. He was still having some chest discomfort upon his arrival here. The patient does apparently smoke as well. He has a history of esophageal cancer treated with Dr. Oglesby and the oncology group. He apparently has completed his treatment course for the esophageal cancer for 5 months ago. He still has a trach and a G-tube in place, both of which do not appear to have been cleaned in quite some time. He lives at home. He apparently is also had a stroke in the past, around 2012 having him with some chronic mild left upper extremity deficits and chronic gait instability. Additionally, the patient is also reporting some significant weakness of the left uppertremity and right lower extremity upon arrival here today. He also was initially reporting some decreased sensation in his feet. These symptoms do improve significantly within about an hour and a half. Family reports that he will drink up to 3 or 4 40 ounce beersdaily. he is not good about putting nutrition down his G-tube. He has had some weight loss. The patient's affect is curiously flat. chest pain does seem to be made worse with movement and with deep breathing. He does have some chest wall tenderness to palpation. He also has some epigastric discomfort palpation initially. Timing/Duration: 1/2 hour Severity: severe Improving Factors: medication Worsening Factors: movement Associated Symptoms: chest pain Allergies/Adverse Reactions: Allergies NO KNOWN ALLERGY Allergy (Verified 05/11/18 23:22) Home Medications: Ambulatory Orders Gabapentin 600 mg PO QID 04/27/18 Review of Systems - Review of Systems Constitutional: States: no symptoms reported EENTM: States: no symptoms reported Respiratory: States: no symptoms reported Cardiology: States: chest pain Gastrointestinal/Abdominal: States: abdominal pain Musculoskeletal: States: see HPI - chronic back pain Skin: States: no symptoms reported Neurological: States: see HPI, numbness, weakness Endocrine: States: no symptoms reported All other Systems: No Change from Baseline Past Medical History (General) - Patient Medical History Hx Seizures: No Hx Stroke: Yes - 2012 Hx Dementia: No Hx Asthma: Yes Hx of COPD: Yes Hx Cardiac Disorders: No Hx Congestive Heart Failure: No Hx Pacemaker: No Hx Hypertension: No Hx Thyroid Disease: No Hx Diabetes: Yes Hx Gastroesophageal Reflux: No Hx Renal Disease: No Hx Cancer: Yes Hx of HIV: No Hx Hepatitis C: Yes - declined any treatment, liver cirrhosis Hx MRSA: No - Vaccination History Hx Tetanus, Diphtheria Vaccination: Yes Hx Influenza Vaccination: Yes Hx Pneumococcal Vaccination: Yes Immunizations Up to Date: Yes - Social History Hx Tobacco Use: Yes Cigarettes Packs Per Day: 2 Hx Chewing Tobacco Use: No Hx Alcohol Use: Yes Hx Substance Use: No Hx Substance Use Treatment: No Hx Depression: No Hx Physical Abuse: No Hx Emotional Abuse: No Hx Suspected Abuse: No - Female History Patient : No - Triage Comment ED Triage Comment: Patient has been out of gabatentin for approx 2 weeks. He has been having RUQ ABD pain for 2 days. Daughter is in the room stating that she ju st located a new lump on the right side of his throat. Patient is unable to move left arm with noticeable contractures of the left digits. Patient unable to move either leg. Family Medical History - Family History Father Living Status: Hx Cardiac Disease: Yes Mother Family History: Unknown Living Status: Hx Family Asthma: No Hx Family Diabetes: Yes Physical Exam - Physical Exam General Appearance: Alert, No apparent distress Eye Exam: bilateral normal Ears, Nose, Throat: hearing grossly normal, normal pharynx - mildlydry Neck: full range of motion, other - tracheostomy is in place. Respiratory: no respiratory distress, no accessory muscle use, rhonchi Cardiovascular/Chest: normal peripheral pulses, regular rate, rhythm, no edema Peripheral Pulses: radial,right: 2+, radial,left: 2+, dorsalis pedis,right: 2+, dorsalis pedis,left: 2+ Gastrointestinal/Abdominal: soft, other - mild epigastric discomfort to palpation. G-tube is in place. There is significant irritation of the skin under the G-tube. 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 These improved to 4 over 5 and 4 over 5 within a couple of hours. He reports some persistent decreased sensation to his lower extremities. Skin Exam: normal color - he patient is disheveled. Comments: Vital Signs - 24 hr 07/29/18 07/30/18 07/30/18 23:26 00:05 00:22 Temperature 97.6 F Pulse Rate 97 H 84 Pulse Rate [ 104 H 88 83 Apical] Respiratory 28 H 14 16 Rate Blood Pressure 136/79 103/66 [Right Arm] O2 Sat by Pulse 98 99 Oximetry 07/30/18 07/30/18 01:16 02:08 Temperature Pulse Rate 83 86 Pulse Rate [ 84 Apical] Respiratory 14 14 Rate Blood Pressure 105/62 [Right Arm] O2 Sat by Pulse 95 99 Oximetry Laboratory Tests 07/29/18 07/29/18 07/29/18 21:35 21:35 21:35 WBC 11.6 H RBC 3.41 L Hgb 11.1 L Hct 32.9 L MCV 96.6 H MCH 32.6 H MCHC 33.8 RDW 14.8 H Plt Count 214 MPV 6.6 L Absolute Neuts (auto) 10.00 H Absolute Lymphs (auto) 0.50 L Absolute Monos (auto) 0.90 H Absolute Eos (auto) 0.10 Absolute Basos (auto) 0.10 Neutrophils % 86.3 H Lymphocytes % 4.4 L Monocytes % 7.9 Eosinophils % 0.9 L Basophils % 0.5 PT 10.8 INR 1.08 PTT (SP) 33.1 H Sodium 120 L Potassium 3.7 Chloride 83 L Carbon Dioxide 24 Anion Gap 16.7 BUN 10 Creatinine 0.89 BUN/Creatinine Ratio 11.2 POC Glucose Random Glucose 136 H Serum Osmolality 241.5 L* Lactic Acid Calcium 8.8 Magnesium 1.9 Total Bilirubin 0.6 AST 36 ALT 25 Alkaline Phosphatase 82 Creatine Kinase 15 L CK-MB (CK-2) 0.7 CK-MB (CK-2) % Not Reportable Troponin I < 0.02 B-Natriuretic Peptide 110.0 H Serum Total Protein 7.3 Albumin 3.3 Globulin 4.0 H Albumin/Globulin Ratio 0.8 L Amylase 22 L Lipase 24 07/29/18 07/29/18 21:35 23:55 WBC RBC Hgb Hct MCV MCH MCHC RDW Plt Count MPV Absolute Neuts (auto) Absolute Lymphs (auto) Absolute Monos (auto) Absolute Eos (auto) Absolute Basos (auto) Neutrophils % Lymphocytes % Monocytes % Eosinophils % Basophils % PT INR PTT (SP) Sodium Potassium Chloride Carbon Dioxide Anion Gap BUN Creatinine BUN/Creatinine Ratio POC Glucose 120 H Random Glucose Serum Osmolality Lactic Acid 0.9 Calcium Magnesium Total Bilirubin AST ALT Alkaline Phosphatase Creatine Kinase CK-MB (CK-2) CK-MB (CK-2) % Troponin I B-Natriuretic Peptide Serum Total Protein Albumin Globulin Albumin/Globulin Ratio Amylase Lipase CT scan of the head shows no obvious acute pathology. CT scan of the cervical spine and neck shows no obvious acute pathology. He does have chronic changes. CT scan of the chest with IV contrast shows a 9 mm pericardial effusion. He also has mucus plugging in the left lower lobe along with left lower and right middle lobe inflammation versus infection. CT scan of abdomen and pelvis with IV contrast shows a G-tube in place. No obvious acute pathology otherwise. See reports for details on above. EKG shows normal sinus rhythm with occasional PACs. Borderline prolonged QT interval. Very mild right axis deviation. No definitive ST segment or T-wave changes indicative of ischemia. Rate is 100 bpm. Progress - Progress Progress: 07/30/18 02:24 the patient is a 63-year-old male presenting with a somewhat confusing clinical picture. Acute chest pain has resolved at this time. Opiate seemed to have helped. EKG failed to show any obvious acute changes when compared to previous. Initial set of cardiac enzymes are negative. He does have a 9 mm thick pericardial effusion that will need further characterization with echocardiogram. Certainly pericarditis is a possibility. Repeat cardiac enzymes may be worthwhile as coronary artery disease has certainly not been ruled out. Esophagitis given the patient's cancer history and the fact that he was drinking alcohol at the time is also a significant possibility. hypoglycemia has been corrected with D50. He is also receiving ensure by G- tube. CT scan is also shown left lower and right middle lobe infiltrates. He is receiving a dose of Rocephin at this time. He is not febrile nor is he significantly short of breath. He also has mucus plugging left lower lobe. This may also be contributing to his chest discomfort. He has received a nebulizer treatment along with a dose of Rocephin. He is not hypoxic. The patient also presented with acute neurological changes of left upper extremity and right lower extremity significant weakness as well as bilateral lower extremity feeling of decreased sensation. These symptoms have also improved as well but not quite back to baseline. Source of this is uncertain. CT scan of the head failed to show any acute pathology. This may be the result of the combination of the hypoglycemia and the hyponatremia. For the hyponatremia, hypoosmolar, the patient is receiving 3% saline at 40 cc per hour for 160 cc total. He will likely require a dose of Lasix in the near future. Source of this is not entirely certain however his or nutritional intake and his increasing alcohol intake are likely contributing. The patient would also benefit from a change out of current G-tube to a new one if one is available. We do not currently have it getting G-tube for him here at this time. The patient also will require some wound care around the G-tube site. Urinalysis still needs to be collected on the patient. The patient does obviously have a history of poor compliance. Departure - Departure Clinical Impression: Acute chest pain, Stroke-like symptoms, Hyponatremia, Hypoglycemia, Alcohol abuse Disposition: Transfer to Hospital Departure Forms: ED Discharge - Pt. Copy, Patient Portal Self Enrollment Referrals: Chilango Stack MD [Primary Care Provider] - 1-2 Weeks Home Medications: Ambulatory Orders Gabapentin 600 mg PO QID 04/27/18 Transfer to Outside Facility - Transfer Information Accepting Provider:: dr hernández Accepting Facility: [facility] Reason for Transfer: required specialist not available
[2018-07-30] MEDS ORDERED: ENOXAPARIN SODIUM 80 MG/0.8 ML SYG SUBCU ONE (02:18)
[2018-07-30 02:21] VITALS: TEMP 98
[2018-07-30 02:35] VITALS: BP 111/68
[2018-07-30 02:42] VITALS: O2SAT 97
== END 2018-07-30 03:10 | disposition short-term general hospital (02) ==
LOC: ER 23:05
DX: R07.9 Chest pain, unspecified (principal); E87.1 Hypo-osmolality and hyponatremia; E11.649 Type 2 diabetes mellitus with hypoglycemia without coma; F10.10 Alcohol abuse, uncomplicated; R53.1 Weakness; R20.0 Anesthesia of skin; R10.13 Epigastric pain; I69.334 Monoplegia of upper limb following cerebral infarction affecting left non-dominant side; I69.398 Other sequelae of cerebral infarction; R91.8 Other nonspecific abnormal finding of lung field; I49.1 Atrial premature depolarization; J44.9 Chronic obstructive pulmonary disease, unspecified; B19.20 Unspecified viral hepatitis C without hepatic coma; F17.210 Nicotine dependence, cigarettes, uncomplicated; Z85.01 Personal history of malignant neoplasm of esophagus; Z93.0 Tracheostomy status; Z93.1 Gastrostomy status; Z79.899 Other long term (current) drug therapy
CPT/HCPCS: 36415; 36416; 70450; 71260; 72125; 74177; 80053; 82150; 82550; 82553; 82948; 83605; 83690; 83735; 83880; 84484; 85025; 85610; 85730; 93005; 94640; J0696; J1650; J2270; J7620; J7799

== ENCOUNTER 2018-09-01 22:07 | Emergency (ER) | payer MEDICARE ==
--- NOTE | 2018-09-01 22:33 | ED.PDOC ---
History of Present Illness - General Chief Complaint: Trauma Stated Complaint: Severe headache after a fall Time Seen by Provider: 09/01/18 22:19 Source: patient Exam Limitations: clinical condition - traheostomy - History of Present Illness Initial Comments: Abhijit Stack 63 y/o male brought by EMS with dull headache after a fall at home tonight .EMS stated that he had alcoholic beverages tonight-beer prior to fall.Has history of throat cancer s/p tracheostomy and radiation treatment diagnosed last year and chronic alcoholism. Occurred: this evening Severity: moderate Pain Location: head Method of Injury: fall Improving Factors: nothing Worsening Factors: nothing Loss of Consciousness: no loss of consciousness Associated Symptoms (Fall): headache Allergies/Adverse Reactions: Allergies NO KNOWN ALLERGY Allergy (Verified 05/11/18 23:22) Home Medications: Ambulatory Orders Gabapentin 600 mg PO QID 04/27/18 Review of Systems - Review of Systems Constitutional: States: no symptoms reported EENTM: States: no symptoms reported Respiratory: States: no symptoms reported Cardiology: States: no symptoms reported Gastrointestinal/Abdominal: States: no symptoms reported Genitourinary: States: no symptoms reported Skin: States: no symptoms reported Neurological: States: headache Endocrine: States: no symptoms reported All other Systems: Reviewed and Negative, No Change from Baseline Past Medical History (General) - Patient Medical History Hx Seizures: No Hx Stroke: Yes - 2012 Hx Dementia: No Hx Asthma: Yes Hx of COPD: Yes Hx Cardiac Disorders: No Hx Congestive Heart Failure: No Hx Pacemaker: No Hx Hypertension: No Hx Thyroid Disease: No Hx Diabetes: Yes Hx Gastroesophageal Reflux: No Hx Renal Disease: No Hx Cancer: Yes Hx of HIV: No Hx Hepatitis C: Yes - declined any treatment, liver cirrhosis Hx MRSA: No Surgical History: other - tracheostomy - Vaccination History Hx Tetanus, Diphtheria Vaccination: Yes Hx Influenza Vaccination: Yes Hx Pneumococcal Vaccination: Yes - Social History Hx Tobacco Use: Yes Hx Chewing Tobacco Use: No Hx Alcohol Use: Yes Hx Substance Use: No Hx Substance Use Treatment: No Hx Depression: No Hx Physical Abuse: No Hx Emotional Abuse: No Hx Suspected Abuse: No - Female History Patient : No Family Medical History - Family History Father Living Status: Hx Cardiac Disease: Yes Mother Family History: Unknown Living Status: Hx Family Asthma: No Hx Family Diabetes: Yes Physical Exam - Physical Exam General Appearance: Emaciated, Frail, Unkempt Head Injury: other - scalp laceration Eye Exam: bilateral normal ENT Exam: hearing grossly normal, no evidence of ENT injury Neck Exam: normal alignment, other - tracheostomy intact Cardiovascular/Respiratory: regular rate, rhythm, no M/R/G, normal peripheral pulses, no JVD Gastrointestinal/Abdominal: non tender, soft, other - PEG intact Extremity Exam: non-tender, no pedal edema Skin Exam: normal color, warm/dry - Kenneth Coma Score Best Eye Response (Kenneth): (4) open spontaneously Best Verbal Response (Kenneth): (5) oriented Best Motor Response ([place]): (6) obeys commands Kenneth Total: 15 Progress - Results/Orders Results/Orders: 09/01/18 22:33 IV Care:Saline Lock per Protoc QSHIFT Laboratory Results - last 24 hr 09/01/18 09/01/18 09/01/18 22:33 22:33 22:33 WBC 8.2 RBC 3.18 L Hgb 10.6 L Hct 30.3 L MCV 95.1 H MCH 33.3 H MCHC 35.0 RDW 16.5 H Plt Count 191 MPV 6.3 L Absolute Neuts (auto) 6.90 H Absolute Lymphs (auto) 0.50 L Absolute Monos (auto) 0.60 Absolute Eos (auto) 0.20 Absolute Basos (auto) 0.00 Neutrophils % 84.0 H Lymphocytes % 6.3 L Monocytes % 7.3 Eosinophils % 1.9 Basophils % 0.5 Sodium 122 L Potassium 4.0 Chloride 85 L Carbon Dioxide 23 Anion Gap 18.0 BUN 6 L Creatinine 0.69 BUN/Creatinine Ratio 8.7 L Random Glucose 78 Serum Osmolality 242.4 L* Calcium 8.9 Total Bilirubin 0.6 AST 26 ALT 13 Alkaline Phosphatase 88 Serum Total Protein 6.8 Albumin 3.3 Globulin 3.5 Albumin/Globulin Ratio 0.9 L Ethyl Alcohol 90.90 H* - EKG/XRAY/CT CT Ordered: Yes - head-no acute hemorrhage,infarct,or skull fracture Departure - Departure Clinical Impression: Throat cancer, Status post tracheostomy, S/P percutaneous endoscopic gastrostomy (PEG) tube placement, Chronic alcoholism, Hyponatremia Fall Qualifiers: Encounter type: initial encounter Qualified Code(s): W19.XXXA - Unspecified fall, initial encounter Headache Qualifiers: Headache type: post-traumatic Headache chronicity pattern: unspecified pattern Intractability: not intractable Qualified Code(s): G44.309 - Post-traumatic headache, unspecified, not intractable Laceration of skin of scalp Qualifiers: Encounter type: initial encounter Qualified Code(s): S01.01XA - Laceration without foreign body of scalp, initial encounter Time of Disposition: 00:16 Disposition: Left Against Medical Advice Condition: Poor Departure Forms: ED Discharge - Pt. Copy, Patient Portal Self Enrollment Referrals: Chilango Stack MD [Primary Care Provider] - 1-2 Weeks Home Medications: Ambulatory Orders Gabapentin 600 mg PO QID 04/27/18
--- NOTE | 2018-09-01 23:17 | CT ---
CLINICAL HISTORY: fall/headache COMPARISON: None. TECHNIQUE: CT HEAD WITHOUT IV CONTRAST on 09/01/2018 10:47 PM CDT This exam was performed according to our departmental dose-optimization program, which includes automated exposure control, adjustment of the mA and/or kV according to patient size and/or use of iterative reconstruction technique. FINDINGS: There is no acute hemorrhage, mass effect or midline shift. There is right frontal encephalomalacia. There is no hydrocephalus. There is no significant volume loss for age. There are mild patchy hypodensities within the periventricular and subcortical white matter, consistent with microangiopathic ischemic changes. The calvarium is intact. Orbits and globes are unremarkable. The paranasal sinuses are clear. Mastoid air cells are clear. IMPRESSION: No acute intracranial findings. Electronically signed by: Tanvir Del Real MD 09/01/2018 11:15 PM CDT
[2018-09-01] MEDS ORDERED: HYDROcodone 5MG/APAP 325MG 1 EA TAB PO ONE (23:28)
[2018-09-01] MEDS ORDERED: HYDROcodone 5MG/APAP 325MG 1 EA TAB ONE (23:29)
[2018-09-01] MEDS ORDERED: CHLORHEXIDINE GLUCONATE 4 % 15 ML UD TOP ONE (23:36)
[2018-09-02 00:14] VITALS: BP 119/64
[2018-09-02 00:17] VITALS: TEMP 97.7; O2SAT 94
== END 2018-09-02 00:15 | disposition left against medical advice (07) ==
LOC: ER 22:07
DX: G44.309 Post-traumatic headache, unspecified, not intractable (principal); S01.01XA Laceration without foreign body of scalp, initial encounter; E87.1 Hypo-osmolality and hyponatremia; F10.20 Alcohol dependence, uncomplicated; K74.60 Unspecified cirrhosis of liver; B19.20 Unspecified viral hepatitis C without hepatic coma; E11.9 Type 2 diabetes mellitus without complications; J44.9 Chronic obstructive pulmonary disease, unspecified; Z53.29 Procedure and treatment not carried out because of patient's decision for other reasons; Z85.20 Personal history of malignant neoplasm of unspecified respiratory organ; Z93.0 Tracheostomy status; Z93.1 Gastrostomy status; Z87.891 Personal history of nicotine dependence; Z86.73 Personal history of transient ischemic attack (TIA), and cerebral infarction without residual deficits; Z79.899 Other long term (current) drug therapy; Z92.3 Personal history of irradiation; W18.30XA Fall on same level, unspecified, initial encounter; Y92.009 Unspecified place in unspecified non-institutional (private) residence as the place of occurrence of the external cause

== ENCOUNTER 2018-09-15 16:59 | Inpatient (IN) | payer MEDICARE, OTHER ==
--- NOTE | 2018-09-15 17:16 | ED.PDOC ---
History of Present Illness - General Chief Complaint: Respiratory Problem Stated Complaint: shortness of breath Time Seen by Provider: 09/15/18 17:01 Source: patient, family Exam Limitations: clinical condition, physical impairment - History of Present Illness Initial Comments: Patient is a 63 yo on Hospice for throat cancer, tracheal tube in place, chronic alcoholism, Hepatitis C, hx of illicit drug use who presents after his family noticed that he was short of breath. They called EMS. EMS reports several empty bottles of alcohol in the dwelling. Patient is unable to communicate effectively with staff. Hospice nurse reports that he has not been in the hospital since 2018 when he was admitted to Hospice. He has a history of frequent aspiration pneumonia. No other history is available. Timing/Duration: unsure Severity: moderate Improving Factors: nothing Worsening Factors: nothing Associated Symptoms: other - as in HPI Allergies/Adverse Reactions: Allergies NO KNOWN ALLERGY Allergy (Verified 05/11/18 23:22) Home Medications: Ambulatory Orders Gabapentin 600 mg PO TID 04/27/18 Dextromethorphan-Guaifenesin [Robafen Dm 100-10 mg/5Ml] 15 ml PEG PRN 09/15/18 Docusate Sodium 100 mg PO BID 09/15/18 Furosemide Oral Liquid [Lasix Oral Solution] 4 ml NEB Q4H PRN 09/15/18 Hydromorphone HCl 4 mg PO PRN 09/15/18 Lactulose 10 gm PO BID 09/15/18 Lorazepam [Lorazepam Intensol] 0.5 ml PEG PRN 09/15/18 Promethazine HCl [Phenergan] 50 mg TOP PRN 09/15/18 Review of Systems - Review of Systems Unable to Obtain Due To: condition, other - see HPI for available history Past Medical History (General) - Patient Medical History Hx Seizures: No Hx Stroke: Yes - 2012 Hx Dementia: No Hx Asthma: Yes Hx of COPD: Yes Hx Cardiac Disorders: No Hx Congestive Heart Failure: No Hx Pacemaker: No Hx Hypertension: No Hx Thyroid Disease: No Hx Diabetes: Yes Hx Gastroesophageal Reflux: No Hx Renal Disease: No Hx Cancer: Yes Hx of HIV: No Hx Hepatitis C: Yes - declined any treatment, liver cirrhosis Hx MRSA: No - Vaccination History Hx Tetanus, Diphtheria Vaccination: Yes Hx Influenza Vaccination: Yes Hx Pneumococcal Vaccination: Yes - Social History Hx Tobacco Use: Yes Hx Chewing Tobacco Use: No Hx Alcohol Use: Yes Hx Substance Use: No Hx Substance Use Treatment: No Hx Depression: No Hx Physical Abuse: No Hx Emotional Abuse: No Hx Suspected Abuse: No - Female History Patient : No Family Medical History - Family History Father Living Status: Hx Cardiac Disease: Yes Mother Family History: Unknown Living Status: Hx Family Asthma: No Hx Family Diabetes: Yes Physical Exam - Physical Exam General Appearance: Alert, Other - combative Eye Exam: bilateral normal Ears, Nose, Throat: other - trachea tube in place, moving air well Neck: other - see ENT Respiratory: rales, rhonchi, wheezing Cardiovascular/Chest: tachycardia Gastrointestinal/Abdominal: normal bowel sounds, non tender, soft Extremity: other - moves all fours equally Neurologic: other - agitated and combative Skin Exam: normal color Progress - Progress Progress: 09/15/18 19:38 Laboratory Tests 09/15/18 09/15/18 09/15/18 17:09 17:10 17:10 WBC 13.1 H RBC 3.43 L Hgb 11.4 L Hct 33.2 L MCV 96.8 H MCH 33.3 H MCHC 34.4 RDW 16.0 H Plt Count 294 MPV 7.0 L Absolute Neuts (auto) 11.80 H Absolute Lymphs (auto) 0.40 L Absolute Monos (auto) 0.80 Absolute Eos (auto) 0.00 Absolute Basos (auto) 0.10 Neutrophils % 90.1 H Lymphocytes % 3.3 L Monocytes % 6.1 Eosinophils % 0.1 L Basophils % 0.4 PT INR PTT (SP) D-Dimer, Quantitative Sodium 123 L Potassium 4.1 Chloride 78 L* Carbon Dioxide 28 Anion Gap 21.1 H BUN 21 H Creatinine 1.04 BUN/Creatinine Ratio 20.2 H Random Glucose 113 H Serum Osmolality 251.6 L* Calcium 9.1 Magnesium 1.6 L Total Bilirubin 1.0 AST 135 H ALT 39 Alkaline Phosphatase 76 Creatine Kinase 443 H* CK-MB (CK-2) 8.5 H* CK-MB (CK-2) % 1.92 Troponin I 0.03 B-Natriuretic Peptide 182.0 H Serum Total Protein 6.6 Albumin 3.4 Globulin 3.2 Albumin/Globulin Ratio 1.1 Urine Color Urine Appearance Urine pH Ur Specific [place] Urine Protein Urine Glucose (UA) Urine Ketones Urine Blood Urine Nitrite Urine Bilirubin Urine Urobilinogen Ur Leukocyte Esterase Urine RBC Urine WBC Ur Epithelial Cells Urine Bacteria Urine Opiates Screen Urine Barbiturates Ur Phencyclidine Scrn U Amphetamin/Meth Scrn U Benzodiazepines Scrn U Cocaine Metab Screen U Cannabinoids Screen Ethyl Alcohol 09/15/18 09/15/18 09/15/18 17:10 17:11 17:11 WBC RBC Hgb Hct MCV MCH MCHC RDW Plt Count MPV Absolute Neuts (auto) Absolute Lymphs (auto) Absolute Monos (auto) Absolute Eos (auto) Absolute Basos (auto) Neutrophils % Lymphocytes % Monocytes % Eosinophils % Basophils % PT 10.5 INR 1.05 PTT (SP) 25.0 D-Dimer, Quantitative 2.17 H* Sodium Potassium Chloride Carbon Dioxide Anion Gap BUN Creatinine BUN/Creatinine Ratio Random Glucose Serum Osmolality Calcium Magnesium Total Bilirubin AST ALT Alkaline Phosphatase Creatine Kinase CK-MB (CK-2) CK-MB (CK-2) % Troponin I B-Natriuretic Peptide Serum Total Protein Albumin Globulin Albumin/Globulin Ratio Urine Color Urine Appearance Urine pH Ur Specific [place] Urine Protein Urine Glucose (UA) Urine Ketones Urine Blood Urine Nitrite Urine Bilirubin Urine Urobilinogen Ur Leukocyte Esterase Urine RBC Urine WBC Ur Epithelial Cells Urine Bacteria Urine Opiates Screen Urine Barbiturates Ur Phencyclidine Scrn U Amphetamin/Meth Scrn U Benzodiazepines Scrn U Cocaine Metab Screen U Cannabinoids Screen Ethyl Alcohol < 5.40 09/15/18 09/15/18 17:11 17:13 WBC RBC Hgb Hct MCV MCH MCHC RDW Plt Count MPV Absolute Neuts (auto) Absolute Lymphs (auto) Absolute Monos (auto) Absolute Eos (auto) Absolute Basos (auto) Neutrophils % Lymphocytes % Monocytes % Eosinophils % Basophils % PT INR PTT (SP) D-Dimer, Quantitative Sodium Potassium Chloride Carbon Dioxide Anion Gap BUN Creatinine BUN/Creatinine Ratio Random Glucose Serum Osmolality Calcium Magnesium Total Bilirubin AST ALT Alkaline Phosphatase Creatine Kinase CK-MB (CK-2) CK-MB (CK-2) % Troponin I B-Natriuretic Peptide Serum Total Protein Albumin Globulin Albumin/Globulin Ratio Urine Color Yellow Urine Appearance Clear Urine pH 7.5 Ur Specific [place] 1.015 Urine Protein Negative Urine Glucose (UA) Negative Urine Ketones Negative Urine Blood Negative Urine Nitrite Negative Urine Bilirubin Negative Urine Urobilinogen 0.2 Ur Leukocyte Esterase Negative Urine RBC 0-1 Urine WBC 0-1 Ur Epithelial Cells 0 Urine Bacteria 0 Urine Opiates Screen Positive H Urine Barbiturates Negative Ur Phencyclidine Scrn Negative U Amphetamin/Meth Scrn Negative U Benzodiazepines Scrn Negative U Cocaine Metab Screen Negative U Cannabinoids Screen Negative Ethyl Alcohol CXR clear. Elevated d-dimer in the context of cancer led to a CTA chest which showed pneumonia. Patient has history of aspiration pneumonia so was started on Unasyn 1.5 mg IV in the E.D. Admitted by Isela Colvin. Departure - Departure Clinical Impression: Pneumonia Disposition: Admit Patient Condition: Fair Departure Forms: ED Discharge - Pt. Copy, Patient Portal Self Enrollment Diet: other - as per hospitalist Activity: other - as per hospitalist Referrals: Chilango Stack MD [Primary Care Provider] - 1-2 Weeks Home Medications: Ambulatory Orders Gabapentin 600 mg PO TID 04/27/18 Dextromethorphan-Guaifenesin [Robafen Dm 100-10 mg/5Ml] 15 ml PEG PRN 09/15/18 Docusate Sodium 100 mg PO BID 09/15/18 Furosemide Oral Liquid [Lasix Oral Solution] 4 ml NEB Q4H PRN 09/15/18 Hydromorphone HCl 4 mg PO PRN 09/15/18 Lactulose 10 gm PO BID 09/15/18 Lorazepam [Lorazepam Intensol] 0.5 ml PEG PRN 09/15/18 Promethazine HCl [Phenergan] 50 mg TOP PRN 09/15/18 Critical Care Note - Critical Care Note Total Time (mins): 35 Decision To Admit - Decistion To Admit Decision to Admit Reason: Admit from ER Decision to Admit Date: 09/15/18 Decision to Admit Time: 19:40
[2018-09-15] MEDS ORDERED: IPRATROPIUM/ALBUTEROL 3 ML VIAL NEB ONE (17:48)
--- NOTE | 2018-09-15 18:03 | RAD ---
EXAM: XR Chest, 1 View CLINICAL HISTORY: dyspnea TECHNIQUE: Frontal view of the chest. COMPARISON: No relevant prior studies available. FINDINGS: Limitations: None. Lungs: Unremarkable. No consolidation. Pleural space: Unremarkable. No pneumothorax. Heart: Unremarkable. No cardiomegaly. Mediastinum: Unremarkable. Bones/joints: Unremarkable. Tubes, lines and devices: Stable tracheostomy. IMPRESSION: No acute findings. Electronically signed by: Johanny Mejia MD 09/15/2018 6:02 PM CDT
[2018-09-15] MEDS ORDERED: SODIUM CHLORIDE 0.9% 1000ML 1,000 ML IVS PRN (18:12)
--- NOTE | 2018-09-15 19:30 | CT ---
EXAM: CT Angiography Chest With Intravenous Contrast CLINICAL HISTORY: dyspnea, throat cancer, elevated d-dimer TECHNIQUE: Axial computed tomographic angiography images of the chest with intravenous contrast using pulmonary embolism protocol. Sagittal and coronal reformatted images were created and reviewed. Sagittal and coronal reformatted images were created and reviewed. This CT exam was performed using one or more of the following dose reduction techniques: automated exposure control, adjustment of the mA and/or kV according to patient size, and/or use of iterative reconstruction technique. MIP reconstructed images were created and reviewed. COMPARISON: 07/30/2018 FINDINGS: Limitations: None. Pulmonary arteries: Unremarkable. No pulmonary embolism. Aorta: No significant abnormality noted. No thoracic aortic aneurysm. Lungs: There is a new confluent nodular consolidation within the anterior right lower lobe. Mild peribronchial consolidation identified in the other lobes. Bilateral airway thickening present with areas of short segment airway occlusion left lower lobe. Pleural space: Unremarkable. No significant effusion. No pneumothorax. Heart: Cardiomegaly. No significant pericardial effusion. No evidence of RV dysfunction. Bones/joints: No acute fracture. No dislocation. Soft tissues: Unremarkable. Lymph nodes: Unremarkable. No enlarged lymph nodes. Tubes, lines and devices: Tracheostomy in good position. IMPRESSION: 1. No pulmonary embolus noted. 2. Inflammatory changes of the airways and multifocal pneumonia most notable in the right lower lobe now present. Follow-up needed to ensure resolution. Electronically signed by: Johanny Mejia MD 09/15/2018 7:29 PM CDT
[2018-09-15] MEDS ORDERED: AMPICILLIN & SULBACTAM SODIUM 1.5 GM in SODIUM CHL 0.9% 50ML MIN-BAG+ 50 ML IVPB ONE (19:34)
[2018-09-15] MEDS ORDERED: AMPICILLIN & SULBACTAM SODIUM 1.5 GM VIAL ONE (19:42)
[2018-09-15] MEDS ORDERED: SODIUM CHL 0.9% 50ML MIN-BAG+ 50 ML IVPB ONE (19:43)
[2018-09-15] MEDS ORDERED: SODIUM CHLORIDE 0.9% (FLUSH) 10 ML SYG IV PRN (21:20)
[2018-09-15] MEDS ORDERED: ACETAMINOPHEN 325 MG TAB PO PRN (21:20)
[2018-09-15] MEDS ORDERED: IPRATROPIUM/ALBUTEROL 3 ML VIAL NEB PRN (21:20)
[2018-09-15] MEDS ORDERED: IV SET AND CAP CHANGE INJ INJ SCH (21:30)
[2018-09-15] MEDS ORDERED: ONDANSETRON INJ 4 MG/2 ML VIAL IV PRN (23:04)
[2018-09-15] MEDS ORDERED: HYDROmorphone HCL 2 MG TAB PO PRN (23:05)
[2018-09-16] MEDS ORDERED: HYDROmorphone HCL 2 MG TAB PO SCH
[2018-09-16] MEDS ORDERED: AMPICILLIN & SULBACTAM SODIUM 1.5 GM VIAL ONE (03:20)
[2018-09-16] MEDS ORDERED: SODIUM CHL 0.9% 50ML MIN-BAG+ 50 ML IVPB ONE (03:21)
[2018-09-16] MEDS ORDERED: AMPICILLIN & SULBACTAM SODIUM 1.5 GM in SODIUM CHL 0.9% 50ML MIN-BAG+ 50 ML IVPB SCH (04:00)
[2018-09-16] MEDS ORDERED: HYDROMORPHONE 4 MG PEG PRN (05:31)
[2018-09-16] MEDS ORDERED: HYDROMORPHONE 4 MG PEG SCH (06:00)
[2018-09-16] MEDS ORDERED: PANTOPRAZOLE SODIUM IV 40 MG VIAL IV SCH (06:30)
--- NOTE | 2018-09-16 06:35 | RAD ---
CLINICAL HISTORY: Pneumonia COMPARISON: September 15, 2018. TECHNIQUE: XR CHEST 1 VIEW 09/16/2018 7:00 AM CDT FINDINGS: Cardiac silhouette is normal in size. Lungs are clear without consolidation, atelectasis, mass or edema. There is no pleural effusion. There is no pneumothorax. There are no acute osseous findings. Tracheostomy is unchanged. IMPRESSION: No change. Electronically signed by: Tanvir Del Real MD 09/16/2018 6:34 AM CDT
[2018-09-16] MEDS ORDERED: IPRATROPIUM/ALBUTEROL 3 ML VIAL NEB SCH (08:00)
[2018-09-16 08:11] VITALS: BP 120/75; TEMP 97.9
[2018-09-16] MEDS ORDERED: IPRATROPIUM/ALBUTEROL 3 ML VIAL NEB ONE (08:37)
[2018-09-16] MEDS ORDERED: FUROSEMIDE INJ 40 MG/4 ML VIAL NEB PRN (09:00)
[2018-09-16] MEDS ORDERED: POTASSIUM CHLORIDE ELIXIR 20 MEQ/15 ML UD GT ONE (09:00)
[2018-09-16] MEDS ORDERED: DOCUSATE SODIUM 100 MG CAP GT SCH (09:00)
[2018-09-16] MEDS ORDERED: GABAPENTIN 300 MG CAP GT SCH (09:00)
[2018-09-16] MEDS ORDERED: SODIUM CHLORIDE 0.9% (FLUSH) 10 ML SYG IV SCH (09:00)
[2018-09-16] MEDS ORDERED: guaiFENesin 100 MG/5 ML 10 ML UD GT SCH (09:00)
[2018-09-16] MEDS ORDERED: LACTULOSE SYRUP 20 GM/30 ML UD GT SCH (09:00)
[2018-09-16 10:47] VITALS: O2SAT 99
--- NOTE | 2018-09-18 13:37 | SSS ---
SUPERVISING PHYSICIAN: Ishan Urena MD DISCHARGE DIAGNOSIS: 1. Pneumonia, most likely secondary to aspiration pneumonia although it could be community acquired. He has a significant admission of aspiration pneumonia as well as throat cancer. 2. Throat cancer with tracheostomy. He is currently on hospice with throat cancer and currently on no treatment. 3. Hepatitis C. 4. ETOH abuse. 5. Tobacco abuse. 6. Chronic obstructive pulmonary disease with questionable exacerbation. HISTORY OF PRESENT ILLNESS: This is a 63-year-old male who has been on hospice for throat cancer. He has a tracheal tube in place. He also has chronic alcoholism as well as hepatitis C and illicit drug use. His family noticed that he was more short of breath than normal and called EMS. EMS did report he had several empty bottles of alcohol in his dwelling. The patient would not answer questions as to if he had been drinking or not. It is reported that he had been drinking and smoking. In the Emergency Room, his vital signs initially were temperature 98.3, heart rate 107, blood pressure 90/67, respiratory rate 36, O2 saturation 97% on 3 liters. His lab was done and he had a white count of 13,100, hemoglobin 11.1, hematocrit 33.2. He had a left shift on his differential. Sodium 123, potassium 4.1, chloride 78. BUN 21, creatinine 1.04, magnesium 1.6, AST 135, creatinine kinase 443, CK-MB 8.5, troponin 0.03. BNP 182. Urinalysis was unremarkable. Opiates were positive. He is on narcotics at home for his hospice diagnosis. His alcohol was less than 5.4. Chest x-ray showed no acute findings. CTA of the chest showed 1) No pulmonary embolus noted. 2) Inflammatory changes of the airway and multifocal pneumonia most notable in the right lower lobe now present. He was given Unasyn in the Emergency Room and I was called for hospital admission. PAST MEDICAL HISTORY: 1. Hepatitis C. 2. Chronic obstructive pulmonary disease with longstanding history of smoking. 3. Throat cancer diagnosed in October of 2017. PAST SURGICAL HISTORY: 1. Tracheostomy due to throat cancer in October of 2017. 2. PEG tube placement in February of 2018. CURRENT MEDICATIONS: 1. Dextromethorphan/guaifenesin. 2. Docusate sodium. 3. Furosemide. 4. Gabapentin. 5. Hydromorphone. 6. Lactulose. 7. Lorazepam. 8. Terbinafine. ALLERGIES: NO KNOWN DRUG ALLERGIES. SOCIAL HISTORY: He lives in [place]. He is retired. He is on [facility] with a diagnosis of throat cancer. He has a longstanding history of smoking. He smoked 2 packs of cigarettes for many years until diagnosed with throat cancer. It is unknown whether he continues to smoke although his family says he does. He also has a longstanding history of alcohol abuse and, again, it is unable to be determined if he continues to drink alcohol. His ethyl alcohol was negative on his blood work. He also has a history of illegal drug use. REVIEW OF SYSTEMS: Unable to obtain due the patient being uncooperative. PHYSICAL EXAMINATION: VITAL SIGNS: Temperature 97.9. Heart rate 82. Blood pressure 120/75. Respiratory rate 20. O2 saturation 98% on trach collar. GENERAL: This is a disheveled 63-year-old male who is very uncooperative and looks to be in mild respiratory distress. HEENT: Normocephalic, atraumatic. Pupils are equal and reactive. He does have a tracheostomy tube in place and is moving air well although he coughs frequently and he does have quite a bit of sputum. RESPIRATORY: Bilateral wheezing, rhonchi and crackles, diminished at the bases. CARDIOVASCULAR: Regular rate and rhythm although at times he is tachycardic. GASTROINTESTINAL: Abdomen is soft, nondistended, nontender. Bowel sounds are positive. EXTREMITIES: No cyanosis, clubbing or edema. NEUROLOGIC: Awake, alert, but he is very agitated and combative. He refuses most care. He is very uncooperative. LABORATORY: Labs and films are as per history of present illness plus followup WBC 11,700, hemoglobin 10, hematocrit 28.9, platelet count 240. He continues to have a left shift on differential. Sodium 124, potassium 3, chloride 82, BUN 18, creatinine 0.82, calcium 8.3. RADIOLOGY: Chest x-ray this morning showed no change. HOSPITAL COURSE: The patient was admitted last night to the hospital to continue with his pneumonia treatment. He was given Unasyn and that was continued. He refused pulmonary hygiene. The patient refused to have his linens changed. The patient refused to have any treatments done. He was very uncooperative and nursing staff was unable to give him normal care. He continually mouthed the words that he wanted to go home. The patient is on hospice and I will discharge him home on Augmentin and he can followup with his primary care physician, Dr. Stack, or [facility] as needed. DISCHARGE PLAN: The patient will be discharged home on [facility]. I have ordered Augmentin and to continue his hospice medications. It is to be noted that when his family came prior to his discharge, he took the bottle of Dilaudid from them and put quite a few pills in his hand and swallowed the Dilaudid. [facility] was notified. Dr. Stack was notified. He will be discharged to home this afternoon in poor condition. DISCHARGE MEDICATIONS: His hospice medications plus Augmentin for 14 days. #[id number] [facility]
== END 2018-09-16 11:45 | disposition hospice, home (50) | DRG 179 ==
LOC: ER 16:59 → MS 20:21
PROVIDERS: ADMIT Nurse Practitioner Acute Care; ATTEND Nurse Practitioner Acute Care
PROC: B32T1ZZ Computerized Tomography (CT Scan) of Left Pulmonary Artery using Low Osmolar Contrast (ICD-10-PCS; principal; 2018-09-15)
PROC: B3201ZZ Computerized Tomography (CT Scan) of Thoracic Aorta using Low Osmolar Contrast (ICD-10-PCS; 2018-09-15)
PROC: B32S1ZZ Computerized Tomography (CT Scan) of Right Pulmonary Artery using Low Osmolar Contrast (ICD-10-PCS; 2018-09-15)
DX: J69.0 Pneumonitis due to inhalation of food and vomit (principal); C14.0 Malignant neoplasm of pharynx, unspecified; K74.60 Unspecified cirrhosis of liver; B19.20 Unspecified viral hepatitis C without hepatic coma; E11.9 Type 2 diabetes mellitus without complications; F10.20 Alcohol dependence, uncomplicated; F17.210 Nicotine dependence, cigarettes, uncomplicated; J44.9 Chronic obstructive pulmonary disease, unspecified; Z66 Do not resuscitate; Z93.0 Tracheostomy status; Z79.891 Long term (current) use of opiate analgesic; Z93.1 Gastrostomy status; Z86.73 Personal history of transient ischemic attack (TIA), and cerebral infarction without residual deficits

== ENCOUNTER 2018-09-17 14:44 | Emergency (ER) | payer MEDICARE, OTHER ==
[2018-09-17] MEDS ORDERED: diphenhydrAMINE HCL 50 MG/ML VIAL IM ONE (15:00)
[2018-09-17] MEDS ORDERED: HALOPERIDOL LACTATE INJ 5 MG/ML VIAL IM ONE (15:02)
[2018-09-17] MEDS ORDERED: diphenhydrAMINE HCL 50 MG/ML VIAL ONE (15:02)
[2018-09-17] MEDS ORDERED: HALOPERIDOL LACTATE INJ 5 MG/ML VIAL ONE (15:02)
[2018-09-17] MEDS ORDERED: LACTATED RINGERS 1,000 ML IVS ONE (15:04)
[2018-09-17] MEDS ORDERED: ZIPRASIDONE INJ 20 MG/ML VIAL IM ONE ×2 (15:15→15:24)
--- NOTE | 2018-09-17 15:38 | ED.PDOC ---
History of Present Illness - General Chief Complaint: Neuro Symptoms/Deficits Stated Complaint: combative Time Seen by Provider: 09/17/18 14:49 Source: RN/MD, EMS Exam Limitations: clinical condition - tracheostomy;combative - History of Present Illness Initial Comments: Abhijit Stack 63 y/o male brought by EMS after he was reported by family members to combative /agitated today.Has history of Thorat CA s/p tracheostomy and recent admissions for aspiration PNA.Recently discharge from hospital and daughter stated had not been compliant with his antibiotic treatment.He is on [facility] and DNR. Timing/Duration: unsure Severity: moderate Improving Factors: nothing Worsening Factors: nothing Associated Symptoms: other - see hpi Allergies/Adverse Reactions: Allergies NO KNOWN ALLERGY Allergy (Verified 05/11/18 23:22) Home Medications: Ambulatory Orders Gabapentin 600 mg PEG TID 04/27/18 Dextromethorphan-Guaifenesin [Robafen Dm 100-10 mg/5Ml] 15 ml PEG QID 09/15/18 Docusate Sodium 100 mg PO BID 09/15/18 Docusate Sodium [Colace] 100 mg PEG BID 09/15/18 Furosemide Oral Liquid [Lasix Oral Solution] 4 ml NEB Q4H PRN 09/15/18 Hydromorphone HCl 4 mg PO Q6HR 09/15/18 Lactulose 10 gm PEG BID 09/15/18 Lorazepam [Lorazepam Intensol] 0.5 ml PEG PRN 09/15/18 Amoxicillin & Pot Clavulanate [Augmentin Tab] 875 mg PO BID #28 tab 09/16/18 Terbinafine HCl [Lamisil] 250 mg PO DAILY 14 Days #14 tab 09/17/18 Review of Systems - Review of Systems Neurological: States: see HPI Unable to Obtain Due To: condition - combative Past Medical History (General) - Patient Medical History Hx Seizures: No Hx Stroke: Yes - 2012 Hx Dementia: No Hx Asthma: Yes Hx of COPD: Yes Hx Cardiac Disorders: No Hx Congestive Heart Failure: No Hx Pacemaker: No Hx Hypertension: No Hx Thyroid Disease: No Hx Diabetes: No Hx Gastroesophageal Reflux: No Hx Renal Disease: No Hx Cancer: Yes Hx of HIV: No Hx Hepatitis C: Yes - declined any treatment, liver cirrhosis Hx MRSA: No - Vaccination History Hx Tetanus, Diphtheria Vaccination: Yes Hx Influenza Vaccination: Yes Hx Pneumococcal Vaccination: Yes - Social History Hx Tobacco Use: Yes Hx Chewing Tobacco Use: No Hx Alcohol Use: Yes Hx Substance Use: No Hx Substance Use Treatment: No Hx Depression: No Hx Physical Abuse: No Hx Emotional Abuse: No Hx Suspected Abuse: No - Female History Patient : No Family Medical History - Family History Father Living Status: Hx Cardiac Disease: Yes Mother Family History: Unknown Living Status: Hx Family Asthma: No Hx Family Diabetes: Yes Physical Exam - Physical Exam General Appearance: Agitated, Frail, Other - emaciated Eye Exam: bilateral normal Ears, Nose, Throat: hearing grossly normal, normal ENT inspection, other - edentulous Neck: normal inspection, other - tracheostomy patent ;suctioned Respiratory: decreased breath sounds Cardiovascular/Chest: normal peripheral pulses, regular rate, rhythm, tachycardia Peripheral Pulses: radial,right: 2+, radial,left: 2+ Gastrointestinal/Abdominal: soft, no organomegaly, other - erythema scrotum Back Exam: normal inspection Neurologic: other - awake ,combative Skin Exam: rash Progress - Progress Progress: 09/17/18 17:56 Vital Signs - 8 hr 09/17/18 09/17/18 14:45 15:00 Pulse Rate [R 108 H finger] Respiratory 24 24 Rate Blood Pressure 140/115 [R bracial] O2 Sat by Pulse 94 L Oximetry - Results/Orders Results/Orders: 09/17/18 15:04 IV Care:Saline Lock per Protoc QSHIFT Arterial Blood Gas Stat Laboratory Results - last 24 hr 09/17/18 09/17/18 09/17/18 15:15 15:15 15:15 WBC 15.8 H RBC 3.25 L Hgb 10.9 L Hct 31.5 L MCV 96.8 H MCH 33.5 H MCHC 34.6 RDW 16.0 H Plt Count 243 MPV 6.8 L Absolute Neuts (auto) 14.60 H Absolute Lymphs (auto) 0.20 L Absolute Monos (auto) 1.00 H Absolute Eos (auto) 0.00 Absolute Basos (auto) 0.10 Neutrophils % 92.3 H Lymphocytes % 1.2 L Monocytes % 6.1 Eosinophils % 0.0 L Basophils % 0.4 PT 10.9 INR 1.09 PTT (SP) 23.4 Sodium 125 L Potassium 3.7 Chloride 81 L Carbon Dioxide 23 Anion Gap 24.7 H BUN 18 Creatinine 1.11 BUN/Creatinine Ratio 16.2 Random Glucose 100 Serum Osmolality 253.5 L* Lactic Acid Calcium 9.2 Magnesium 1.7 L Total Bilirubin 1.3 H D Direct Bilirubin 0.3 H Indirect Bilirubin 1.0 H AST 99 H ALT 42 Alkaline Phosphatase 73 Ammonia 19 Creatine Kinase 217 H* D CK-MB (CK-2) 8.7 H* CK-MB (CK-2) % 4.01 H Troponin I 0.04 Serum Total Protein 6.5 Albumin 3.5 Ethyl Alcohol < 5.40 09/17/18 15:15 WBC RBC Hgb Hct MCV MCH MCHC RDW Plt Count MPV Absolute Neuts (auto) Absolute Lymphs (auto) Absolute Monos (auto) Absolute Eos (auto) Absolute Basos (auto) Neutrophils % Lymphocytes % Monocytes % Eosinophils % Basophils % PT INR PTT (SP) Sodium Potassium Chloride Carbon Dioxide Anion Gap BUN Creatinine BUN/Creatinine Ratio Random Glucose Serum Osmolality Lactic Acid 8.8 H* Calcium Magnesium Total Bilirubin Direct Bilirubin Indirect Bilirubin AST ALT Alkaline Phosphatase Ammonia Creatine Kinase CK-MB (CK-2) CK-MB (CK-2) % Troponin I Serum Total Protein Albumin Ethyl Alcohol Discuss all test results with family and according to their dad he is ready to go( see Mik) and presently he is on DNR and also only wants his pain medications no other medicine refusing to take his antibiotics;Patient calmed down after he was given Haldol;Geodon,alprazolam,Benadryl;Took off all his monitor pads ready to walk out of er Departure - Departure Clinical Impression: Combative behavior, Throat cancer, DNR no code (do not resuscitate), Non compliance with medical treatment, Candidiasis of scrotum, Tracheostomy present Time of Disposition: 18:03 Disposition: Discharge Hospice In-Home Srv Condition: Poor Departure Forms: ED Discharge - Pt. Copy, Patient Portal Self Enrollment Referrals: Chilango Stack MD [Primary Care Provider] - 1-2 Weeks Prescriptions: Terbinafine HCl [Lamisil] 250 mg PO DAILY 14 Days #14 tab Home Medications: Ambulatory Orders Gabapentin 600 mg PEG TID 04/27/18 Dextromethorphan-Guaifenesin [Robafen Dm 100-10 mg/5Ml] 15 ml PEG QID 09/15/18 Docusate Sodium 100 mg PO BID 08/10/19 Docusate Sodium [Colace] 100 mg PEG BID 09/15/18 Furosemide Oral Liquid [Lasix Oral Solution] 4 ml NEB Q4H PRN 09/15/18 Hydromorphone HCl 4 mg PO Q6HR 09/15/18 Lactulose 10 gm PEG BID 09/15/18 Lorazepam [Lorazepam Intensol] 0.5 ml PEG PRN 09/15/18 Amoxicillin & Pot Clavulanate [Augmentin Tab] 875 mg PO BID #28 tab 09/16/18 Terbinafine HCl [Lamisil] 250 mg PO DAILY 14 Days #14 tab 09/17/18 Additional Instructions: Continue with hospice care;continue with home medications
[2018-09-17 17:12] VITALS: BP 140/115; O2SAT 94
== END 2018-09-17 18:10 | disposition hospice, home (50) ==
LOC: ER 14:44
DX: R45.1 Restlessness and agitation (principal); C14.0 Malignant neoplasm of pharynx, unspecified; B37.2 Candidiasis of skin and nail; J44.9 Chronic obstructive pulmonary disease, unspecified; B19.20 Unspecified viral hepatitis C without hepatic coma; K74.60 Unspecified cirrhosis of liver; Z93.0 Tracheostomy status; Z91.14 Patient's other noncompliance with medication regimen; Z66 Do not resuscitate; Z87.891 Personal history of nicotine dependence; Z86.73 Personal history of transient ischemic attack (TIA), and cerebral infarction without residual deficits; Z79.899 Other long term (current) drug therapy